=== PATIENT | male | born 1945 | race Caucasian/White ===

== ENCOUNTER 2019-04-26 10:21 | Emergency (ER) | payer MEDICARE, OTHER ==
[2019-04-26] MEDS ORDERED: ALBUTEROL/IPRATROPIUM 3 ML NEB NEB ONE (10:35)
[2019-04-26] MEDS ORDERED: methylPREDNIS SUCC 125 MG/2ML IVP ONE (10:35)
--- NOTE | 2019-04-26 10:37 | ER Report ---
History and Physical Time Seen By MD: 10:33 Hx. of Stated Complaint: PT REPORTS CP AND SOB SINCE LAST NIGHT. PT REPORTS HE JUST MOVED FROM [place] TO [place] HPI/ROS CHIEF COMPLAINT: Shortness of breath chest pain HISTORY OF PRESENT ILLNESS: 74-year-old male long history of COPD D multipack year smoker comes from level to altitude in here 2 days noticing worsening shortness of breath and had a brief episode of pleuritic chest discomfort this morning. Patient states he has ambulatory shortness of breath exertional shor tness of breath and mild orthopnea no PND. Patient describes chest pain is dull and aching center of his chest lasted a few moments and then subsequently resolved without intervention. Patient has not been on supplemental O2. Patient is still smoking. Is been without his medications including hypertensive medications and his breathing medications for the last [address] [facility] with very short notice was not able to bring any of his medications with him. Patient has no additional complaints this time REVIEW OF SYSTEMS: Respiratory: Cough no shortness of breath Cardiovascular: chest pain, no palpitations. Gastrointestinal: No vomiting, no abdominal pain. Musculoskeletal: No back pain. Remainder of the 14 system rev: Yes Allergies: Coded Allergies: Penicillins (Verified Allergy, Unknown, 04/26/19) Home Meds Unable to Obtain Active Prescriptions or Reported Meds Reviewed Nurses Notes: Yes Old Medical Records Reviewed: Yes Constitutional Vital Sign - Last 24 Hours 04/26/19 04/26/19 04/26/19 04/26/19 10:21 10:30 10:35 10:40 Temp 98.2 Pulse 88 88 88 91 Resp 16 21 15 13 B/P (MAP) 142/95 159/90 (113) Pulse Ox 92 91 90 89 O2 Delivery Room Air 04/26/19 04/26/19 04/26/19 04/26/19 10:45 10:50 10:55 10:55 Pulse 86 90 84 Resp 20 18 13 Pulse Ox 92 90 89 99 O2 Delivery Room Air 04/26/19 04/26/19 04/26/19 04/26/19 10:55 10:59 11:00 11:05 Pulse 84 81 86 Resp 18 18 16 16 B/P (MAP) 161/87 (111) Pulse Ox 88 86 04/26/19 04/26/19 04/26/19 04/26/19 11:10 11:10 11:15 11:20 Pulse 85 86 87 Resp 17 17 18 Pulse Ox 92 93 93 O2 Flow Rate 2.0 04/26/19 04/26/19 04/26/19 04/26/19 11:25 11:30 11:35 12:00 Pulse 87 90 85 87 Resp 15 11 17 16 B/P (MAP) 164/82 (109) 170/91 (117) Pulse Ox 94 90 94 95 04/26/19 04/26/19 12:15 12:27 Pulse 90 Resp 29 B/P (MAP) 157/79 (105) Pulse Ox 94 Physical Exam General Appearance: The patient is alert, has no immediate need for airway protection and no current signs of toxicity. [ ] Eyes: Pupils equal and round no injection. Respiratory: Chest is non tender, lungs demonstrate bilateral coarse crackles at the bases and end expiratory wheezes throughout no respiratory distress no sex accessory muscle utilization additional findings of note Cardiac: regular rate and rhythm [ ] Gastrointestinal: Abdomen is soft and non tender, no masses, bowel sounds normal. Musculoskeletal: Neck: Neck is supple and non tender. Extremities have full range of motion and are non tender. Skin: No rashes or lesions. [ ] DIFFERENTIAL DIAGNOSIS: After history and physical exam differential diagnosis was considered for COPD COPD exacerbation pneumonia or pulmonary embolus cardiac cardiomyopathy and congestive heart failure Medical Decision Making Data Points Result Diagram: 04/26/19 1030 04/26/19 1030 Laboratory Hematology Test 04/26/19 10:30 04/26/19 10:57 Red Blood Count 5.06 M/uL (4.00-5.60) Mean Corpuscular Volume 81.3 fL (80.0-96.0) Mean Corpuscular Hemoglobin 27.0 pg (26.0-33.0) Mean Corpuscular Hemoglobin Concent 33.2 g/dL (32.0-36.0) Red Cell Distribution Width 17.2 % (11.5-14.5) Mean Platelet Volume 8.9 fL (7.2-11.1) Neutrophils (%) (Auto) 53.4 % (39.4-72.5) Lymphocytes (%) (Auto) 32.1 % (17.6-49.6) Monocytes (%) (Auto) 9.0 % (4.1-12.4) Eosinophils (%) (Auto) 5.0 % (0.4-6.7) Basophils (%) (Auto) 0.5 % (0.3-1.4) Nucleated RBC Relative Count (auto) 0.0 /100WBC Neutrophils # (Auto) 5.3 K/uL (2.0-7.4) Lymphocytes # (Auto) 3.2 K/uL (1.3-3.6) Monocytes # (Auto) 0.9 K/uL (0.3-1.0) Eosinophils # (Auto) 0.5 K/uL (0.0-0.5) Basophils # (Auto) 0.1 K/uL (0.0-0.1) Nucleated RBC Absolute Count (auto) 0.00 K/uL D-Dimer Quantitative (PE/DVT) 2.06 ug/ml (0-0.50) Sodium Level 141 mmol/L (137-145) Potassium Level 3.8 mmol/L (3.5-5.0) Chloride Level 103 mmol/L (98-107) Carbon Dioxide Level 27 mmol/L (22-30) Blood Urea Nitrogen 15 mg/dl (9-21) Creatinine 1.00 mg/dl (0.66-1.25) Glomerular Filtration Rate Calc > 60.0 Random Glucose 125 mg/dl (75-110) Calcium Level 9.7 mg/dl (8.4-10.2) Total Bilirubin 0.6 mg/dl (0.2-1.3) Aspartate Amino Transf (AST/SGOT) 22 U/L (0-35) Alanine Aminotransferase (ALT/SGPT) 34 U/L (0-56) Alkaline Phosphatase 135 U/L (0-126) Troponin I < 0.012 ng/ml B-Type Natriuretic Peptide 36 pg/ml (0-100) Total Protein 7.9 g/dl (6.3-8.2) Albumin 4.2 g/dl (3.5-5.0) Blood Gas Puncture Site Left radial Blood Gas Patient Temperature 98.2 DEGREES Arterial Blood pH 7.47 (7.35-7.45) Arterial Blood Partial Pressure CO2 33 mmHg (32-37) Arterial Blood Partial Pressure O2 58 mmHg (60-80) Arterial Blood HCO3 24 mmol/L (20-26) Arterial Blood Oxygen Saturation 92 % (92-100) Arterial Blood Base Excess 0.0 mmol/L Trip Test Acceptable Oxygen Liters/Minute 21 Chemistry Test 04/26/19 10:30 04/26/19 10:57 White Blood Count 9.9 k/uL (4.5-11.0) Red Blood Count 5.06 M/uL (4.00-5.60) Hemoglobin 13.6 g/dL (14.0-18.0) Hematocrit 41.1 % (42.0-52.0) Mean Corpuscular Volume 81.3 fL (80.0-96.0) Mean Corpuscular Hemoglobin 27.0 pg (26.0-33.0) Mean Corpuscular Hemoglobin Concent 33.2 g/dL (32.0-36.0) Red Cell Distribution Width 17.2 % (11.5-14.5) Platelet Count 212 K/uL (150-450) Mean Platelet Volume 8.9 fL (7.2-11.1) Neutrophils (%) (Auto) 53.4 % (39.4-72.5) Lymphocytes (%) (Auto) 32.1 % (17.6-49.6) Monocytes (%) (Auto) 9.0 % (4.1-12.4) Eosinophils (%) (Auto) 5.0 % (0.4-6.7) Basophils (%) (Auto) 0.5 % (0.3-1.4) Nucleated RBC Relative Count (auto) 0.0 /100WBC Neutrophils # (Auto) 5.3 K/uL (2.0-7.4) Lymphocytes # (Auto) 3.2 K/uL (1.3-3.6) Monocytes # (Auto) 0.9 K/uL (0.3-1.0) Eosinophils # (Auto) 0.5 K/uL (0.0-0.5) Basophils # (Auto) 0.1 K/uL (0.0-0.1) Nucleated RBC Absolute Count (auto) 0.00 K/uL D-Dimer Quantitative (PE/DVT) 2.06 ug/ml (0-0.50) Glomerular Filtration Rate Calc > 60.0 Calcium Level 9.7 mg/dl (8.4-10.2) Total Bilirubin 0.6 mg/dl (0.2-1.3) Aspartate Amino Transf (AST/SGOT) 22 U/L (0-35) Alanine Aminotransferase (ALT/SGPT) 34 U/L (0-56) Alkaline Phosphatase 135 U/L (0-126) Troponin I < 0.012 ng/ml B-Type Natriuretic Peptide 36 pg/ml (0-100) Total Protein 7.9 g/dl (6.3-8.2) Albumin 4.2 g/dl (3.5-5.0) Blood Gas Puncture Site Left radial Blood Gas Patient Temperature 98.2 DEGREES Arterial Blood pH 7.47 (7.35-7.45) Arterial Blood Partial Pressure CO2 33 mmHg (32-37) Arterial Blood Partial Pressure O2 58 mmHg (60-80) Arterial Blood HCO3 24 mmol/L (20-26) Arterial Blood Oxygen Saturation 92 % (92-100) Arterial Blood Base Excess 0.0 mmol/L Trip Test Acceptable Oxygen Liters/Minute 21 Coagulation Test 04/26/19 10:30 D-Dimer Quantitative (PE/DVT) 2.06 ug/ml ED Course/Re-evaluation ED Course 74-year-old male [place] has had worsening shortness of breath last couple of days and chest discomfort CT angiogram is negative other than centrilobular emphysema patient will be advised to utilize ciprofloxacin D and discontinue smoking return to altitude levels if need be and follow-up with primary care Decision to Disposition Date: Apr 26, 2019 Decision to Disposition Time: 12:46 Depart Departure Latest Vital Signs Vital Signs Date Time Temp Pulse Resp B/P (MAP) Pulse Ox O2 Delivery O2 Flow Rate FiO2 04/26/19 12:27 157/79 (105) 04/26/19 12:15 90 29 94 04/26/19 11:10 2.0 04/26/19 10:55 Room Air 04/26/19 10:21 98.2 Impression: Primary Impression: COPD (chronic obstructive pulmonary disease) Condition: Improved Disposition: HOME OR SELF-CARE Referrals: МАРИНА JOHNSON 5 Days New Scripts Prednisone (PREDNISONE) 20 Mg Tablet 60 MG PO QDAY, #12 0 Refills Prov: SHAW SANCHEZ MD 04/26/19 Albuterol Sulfate (PROVENTIL HFA) 6.7 Gm Inh 1-2 PUFF INH 3-4XD for 10 Days, INH Prov: SHAW SANCHEZ MD 04/26/19 Patient Instructions: COPD (Chronic Obstructive Pulmonary Disease) (DC) SHAW SANCHEZ MD Apr 26, 2019 10:37
[2019-04-26 10:47] LABS: PLATELET COUNT, AUTOMATED 212 K/uL (150-450)
[2019-04-26] MEDS ORDERED: diphenhydrAMINE 50 MG/ML VIAL IVP ONE (11:25)
[2019-04-26] MEDS ORDERED: IOPAMIDOL 76% 100 ML INFUS BTL 100 ML ONE (11:26)
[2019-04-26] MEDS ORDERED: NS(*) 0.9% 50 ML BAG 50 ML ONE (11:27)
[2019-04-26 12:27] VITALS: BP 157/79
--- NOTE | 2019-04-26 12:46 | RADIOLOGY IMAGING REPORT ---
FACILITY: [facility] [place] PATIENT NAME: Neto Cisneros : 1945 MR: [id number] V: [id number] EXAM DATE: ORDERING PHYSICIAN: SHAW SANCHEZ TECHNOLOGIST: [place] [facility] [place]: [place]o Cisneros : 1945 Visit/Account:[id number] Date of Sevice: 04/26/2019 CT CTA CHEST W & W/O CON HISTORY: sob ADDITIONAL HISTORY: One pack a day cigarette smoker TECHNIQUE: CTA chest with intravenous contrast. Axial imaging acquired following administration of IV contrast timed for maximum opacification of the pulmonary arterial vasculature. Slab 3-D MIP radha nstructed images were also created for further evaluation and interpretation. Reconstruction of the [facility] data set includes multiplanar 2-D in the sagittal and coronal planes and 3-D reconstructed doris nal slab MIP series. 3-D images were created by the technologist. One of the following dose optimiz ation techniques was utilized in the performance of this exam: Automated exposure control; adjustment of the mA and/or kV according to the patient's size; or use of an iterative reconstruction techniqu e. Specific details can be referenced in the facility's radiology CT exam operational policy. CONTRAST: 75 mL Isovue-370 COMPARISON: None. FINDINGS: Lungs/pleura: Several tiny subcentimeter blebs are seen in the upper lung zones and there is very bashir btle bulla in the upper lung zones measuring less than 5 mm diameter. No pulmonary nodules are seen. Heart/vessels: Negative. There are no filling defects seen in the pulmonary arteries worrisome for a pulmonary embolus. Mediastinum/lymph nodes: There is a paratracheal lymph node upper normal limits in size measuring 1. 4 cm. No moose adenopathy. Visualized upper abdomen: 1 cm hepatic cyst noted. Otherwise unremarkable. Bones/soft tissues: Mild spondylitic changes seen through the thoracic spine. No compression fractu res. Additional findings: There is a hyperdense or enhancing right thyroid nodule measuring approximately 2.5 cm diameter (axial images 1-6 series 4). Minimal mucus is seen in the trachea and mainstem bronchi IMPRESSION: No acute pathology identified. No evidence of pulmonary embolus. Mild centrilobular emphysema. 2.5 cm hyperdense or enhancing right thyroid nodule. Recommend thyroid ultrasound follow-up for furt her evaluation. Report Dictated By: Vic Romo MD at 04/26/2019 12:27 PM Report E-Signed By: Vic Romo MD at 04/26/2019 12:40 PM WSN:[id number]
[2019-04-26] MEDS ORDERED: PRED20TA6 PO (12:50)
[2019-04-26] MEDS ORDERED: ALB6.7R INH (12:50)
== END 2019-04-26 13:00 | disposition home or self-care (01) ==
LOC: EDBD 10:21 → ER 10:37
DX: J44.9 Chronic obstructive pulmonary disease, unspecified (principal); F17.210 Nicotine dependence, cigarettes, uncomplicated
CPT/HCPCS: 36600; 71275; 82803; 83880; 84484; 85025; 85379; 93005; 94640; 96374; 96375; 99283; J1200; J2930; J7050; J7620; Q9967; 82040; 82247; 82310; 82374; 82435; 82565; 82947; 84075; 84132; 84155; 84295; 84450; 84460; 84520

== ENCOUNTER 2019-05-20 18:10 | Emergency (ER) | payer MEDICARE ==
[~2019-05-20 18:10] MED LIST: ALB6.7R INH; PRED20TA6 PO
--- NOTE | 2019-05-20 18:13 | ER Report ---
History and Physical Time Seen By MD: 18:10 HPI/ROS CHIEF COMPLAINT: Right lower quadrant abdominal pain, diarrhea HISTORY OF PRESENT ILLNESS: 74-year-old male with a history of COPD from [place] recently moved to [facility] a month ago. He presented on 04/26 with some difficulty breathing and a COPD exacerbation. He was given prednisone and albuterol inhaler. He has follow-up appoint scheduled with primary care in 06/09. Patient now presents with 4-5 days of right lower quadrant pain with severe diarrhea with mucus and some blood was noted today. Patient's been unable to eat or keep anything down for 2-3 days. He's vomited up a sandwich. She tried to eat earlier today. Low-grade fevers yesterday. He has a previous history of an ab dominal surgical repair and umbilical hernia. He states another hernia has recurred. He's not had any surgery done on it. Patient notes no exacerbating or alleviating factors for his pain. Patient denies recent travel exposure to ill contacts or consumption of bad food. Patient denies recent consumption of antibiotics. REVIEW OF SYSTEMS: Respiratory: No cough, no dyspnea. Cardiovascular: No chest pain, no palpitations. Gastrointestinal: As above Musculoskeletal: No back pain. Allergies: Coded Allergies: Penicillins (Verified Allergy, Unknown, 05/20/19) aspirin (Verified Adverse Reaction, Intermediate, stomach irritation, 05/20/19) Uncoded Allergies: IV contrast (Allergy, Mild, itchy, 05/20/19) Home Meds Active Scripts Metronidazole (FLAGYL) 500 Mg Tablet, 500 MG PO BID for infection, #14 TAB Prov:BENJI KEENAN DO 05/20/19 Ciprofloxacin Hcl 500 Mg Tab (CIPRO 500 MG TAB) 500 Mg Tablet, 500 MG PO BID for infecction, #14 Prov:BENJI KEENAN DO 05/20/19 Hydrocodone Bit/Acetaminophen (HYDROCODON-ACETAMINOPHEN 5-325) 1 Each Tablet, 1 EACH PO Q4-6H PRN for PAIN, #15 TAKE ONE TABLET BY MOUTH EVERY 4-6 HOURS NEEDED FOR PAIN Prov:BENJI KEENAN DO 05/20/19 Ondansetron 4 Mg Odt (ONDANSETRON 4 MG ODT) 4 Mg Tab.rapdis, 4 MG PO Q6H PRN for NAUSEA/VOMITING, #15 TAB Prov:BENJI KEENAN DO 05/20/19 Discontinued Scripts Prednisone (PREDNISONE) 20 Mg Tablet, 60 MG PO QDAY, #12 0 Refills Prov:SHAW SANCHEZ MD 04/26/19 Albuterol Sulfate (PROVENTIL HFA) 6.7 Gm Inh, 1-2 PUFF INH 3-4XD for 10 Days, INH Prov:SHAW SANCHEZ MD 04/26/19 Reviewed Nurses Notes: Yes Old Medical Records Reviewed: Yes Constitutional Vital Sign - Last 24 Hours 05/20/19 05/20/19 05/20/19 05/20/19 18:14 18:18 18:30 19:00 Temp 98.0 Pulse 99 Resp 18 B/P (MAP) 188/99 (128) 188/99 164/85 (111) 170/88 (115) Pulse Ox 94 O2 Delivery Room Air 05/20/19 05/20/19 05/20/19 05/20/19 19:10 19:30 19:40 20:00 Pulse 91 104 89 B/P (MAP) 153/87 (109) 159/78 (105) Pulse Ox 99 100 100 05/20/19 20:30 Pulse 85 B/P (MAP) 147/78 (101) Pulse Ox 99 Physical Exam Vital signs stable, afebrile, pulse ox normal General Appearance: The patient is alert, has no immediate need for airway protection and no current signs of toxicity. Moderate distress, slightly pale appearing, skin warm and dry HEENT: Pupils equal and round no injection. TMs normal, oropharynx with moist mucous. Membranes, no erythema Respiratory: Chest is non tender, lungs are clear to auscultation. Cardiac: regular rate and rhythm Gastrointestinal: Abdomen is soft moderate right lower quadrant tenderness with rebound and guarding, no masses, bowel sounds normal. Musculoskeletal: Neck: Neck is supple and non tender. No lymphadenopathy Extremities have full range of motion and are non tender. Skin: No rashes or lesions. DIFFERENTIAL DIAGNOSIS: After history and physical exam differential diagnosis was considered for abdominal pain including but not limited to appendicitis, cholecystitis, gastroenteritis, food poisoning, viral syndrome, infectious diarrhea, gastritis and urinary tract infection. Medical Decision Making Data Points Result Diagram: 05/20/19 1826 05/20/19 1826 Laboratory Hematology Test 05/20/19 18:26 White Blood Count 10.3 k/uL (4.5-11.0) Red Blood Count 4.80 M/uL (4.00-5.60) Hemoglobin 13.0 g/dL (14.0-18.0) L Hematocrit 38.2 % (42.0-52.0) L Mean Corpuscular Volume 79.5 fL (80.0-96.0) L Mean Corpuscular Hemoglobin 27.1 pg (26.0-33.0) Mean Corpuscular Hemoglobin Concent 34.1 g/dL (32.0-36.0) Red Cell Distribution Width 16.6 % (11.5-14.5) H Platelet Count 247 K/uL (150-450) Mean Platelet Volume 8.7 fL (7.2-11.1) Neutrophils (%) (Auto) 56.4 % (39.4-72.5) Lymphocytes (%) (Auto) 29.0 % (17.6-49.6) Monocytes (%) (Auto) 10.3 % (4.1-12.4) Eosinophils (%) (Auto) 3.5 % (0.4-6.7) Basophils (%) (Auto) 0.8 % (0.3-1.4) Nucleated RBC Relative Count (auto) 0.1 /100WBC Neutrophils # (Auto) 5.8 K/uL (2.0-7.4) Lymphocytes # (Auto) 3.0 K/uL (1.3-3.6) Monocytes # (Auto) 1.1 K/uL (0.3-1.0) H Eosinophils # (Auto) 0.4 K/uL (0.0-0.5) Basophils # (Auto) 0.1 K/uL (0.0-0.1) Nucleated RBC Absolute Count (auto) 0.01 K/uL Chemistry Test 05/20/19 18:26 Sodium Level 137 mmol/L (137-145) Potassium Level 3.5 mmol/L (3.5-5.0) Chloride Level 101 mmol/L (98-107) Carbon Dioxide Level 25 mmol/L (22-30) Blood Urea Nitrogen 11 mg/dl (9-21) Creatinine 0.80 mg/dl (0.66-1.25) Glomerular Filtration Rate Calc > 60.0 Random Glucose 113 mg/dl (75-110) Lactate 1.3 mmol/L (0.7-2.1) Calcium Level 9.6 mg/dl (8.4-10.2) Total Bilirubin 0.6 mg/dl (0.2-1.3) Aspartate Amino Transf (AST/SGOT) 27 U/L (0-35) Alanine Aminotransferase (ALT/SGPT) 29 U/L (0-56) Alkaline Phosphatase 142 U/L (0-126) Total Protein 7.7 g/dl (6.3-8.2) Albumin 3.9 g/dl (3.5-5.0) Amylase Level 49 U/L (0-110) Lipase 47 U/L (23-300) Urinalysis Test 05/20/19 19:45 Urine Color Straw Urine Clarity Slightly-cloudy Urine pH 7.0 pH (4.8-9.5) Urine Specific [place] 1.003 Urine Protein Negative mg/dL (NEGATIVE) Urine Glucose (UA) Negative mg/dL (NEGATIVE) Urine Ketones Negative mg/dL (NEGATIVE) Urine Blood Negative (NEGATIVE) Urine Nitrite Negative (NEGATIVE) Urine Bilirubin Negative (NEGATIVE) Urine Urobilinogen Negative mg/dL (0.2-1.9) Urine Leukocyte Esterase Negative (NEGATIVE) Urine RBC <1 /HPF (0-2/HPF) Urine WBC 1 /HPF (0-5/HPF) Urine Squamous Epithelial Cells None /LPF (</=FEW) Urine Amorphous Crystals Few /HPF Urine Bacteria Few /HPF (NONE-FEW) Urine Mucus None /HPF (NONE-FEW) Microbiology Microbiology Date/Time Source Procedure Growth Status 05/20/19 18:45 Blood Peripheral Draw Blood Culture - Preliminary NO GROWTH AFTER 1 DAY, REINCUBATED Resulted 05/20/19 18:25 Blood Peripheral Draw Blood Culture - Preliminary NO GROWTH AFTER 1 DAY, REINCUBATED Resulted EKG/Imaging Imaging Results: CT scan of the abdomen and pelvis with IV contrast was obtained. The results of the study are EXAMINATION: CT abdomen and pelvis with IV contrast HISTORY: Right lower quadrant pain. TECHNIQUE: Axial CT images of the abdomen and pelvis were obtained with IV contrast, with coronal and sagittal 2D reconstructed images. One of the following dose optimization techniques was utilized in the performance of this exam: Automated exposure control; adjustment of the mA and/or kV according to the patient's size; or use of an iterative reconstruction technique. Specific details can be referenced in the facility's radiology CT exam operational policy. Contrast: 75 mL of IV Isovue-370. COMPARISON: None. FINDINGS: Liver: Normal hepatic size and morphology. There is a 1.3 cm cyst in the inferior right hepatic lobe. Additional subcentimeter hypodensities in the liver are too small to definitively characterize. The hepatic veins and portal veins are patent. Gallbladder and bile ducts: Negative. Spleen: Negative. Pancreas: There are a few punctate calcifications along the pancreatic head likely related to prior pancreatitis. No acute peripancreatic stranding. Adrenal glands: Negative. Kidneys: No urinary calculi or hydronephrosis. The kidneys enhance normally. There is a 2.3 cm cortical cyst along the lower pole of the right kidney. Bowel and peritoneum: There is a large heterogeneously enhancing mass in the cecum, highly suspicious for colon cancer. This measures approximately 5.8 x 6.5 x 6.7 cm. There is some indistinctness along the serosal surface of the colon with some adjacent pericolonic stranding suspicious for transserosal extension of tumor. The mass extends to the ileocecal valve, without evidence of small bowel obstruction. The mass also extends to the appendiceal orifice. The appendix is mildly dilated measuring up to 9 mm in diameter with mild enhancement and slight periappendiceal stranding. Superimposed appendicitis is not excluded. Remainder of the small bowel and colon are normal in caliber. No additional bowel wall thickening. No free fluid or free intraperitoneal air. Pelvic structures: Negative. Lymph node assessment: There are multiple small rounded mesenteric lymph nodes adjacent to the cecal mass, measuring up to 1.3 x 1.0 cm, suspicious for metastatic adenopathy. No additional enlarged lymph nodes in the abdomen or pelvis. Vessels: Moderate aortic atherosclerosis. There is mild aneurysmal dilatation of the infrarenal abdominal aorta measuring 3.4 x 2.9 cm. Musculoskeletal: No acute osseous findings or suspicious focal osseous lesions. Chronic multilevel degenerative changes along the spine. Body wall: Negative. Lung bases: Indeterminate 5 mm noncalcified nodule in the left lower lobe (series 3, image 12). There is an adjacent subpleural nodule also measuring 5 mm (image 12). Slight scarring or atelectasis in the lung bases. IMPRESSION: 1. Heterogeneous soft tissue mass in the cecum is highly suspicious for colon cancer, measuring up to 6.7 cm. There is likely transserosal extension of tumor into the adjacent mesenteric fat with adjacent metastatic lymph nodes in the mesentery. 2. The mass involves the ileocecal valve, without evidence of small bowel obstruction. 3. The mass also involves the origin of the appendix. The appendix is mildly dilated at 9 mm with slight adjacent stranding. Appendicitis from obstruction of the appendiceal orifice is not excluded. 4. No other acute intra-abdominal findings. 5. There is a 1.3 cm cyst in the liver. Other subcentimeter hypodensities are too small to definitively characterize. Follow-up liver MRI may be helpful for further characterization. 6. Indeterminate 5 mm nodules in the imaged left lower lung. 7. Mild aneury mal dilatation of the infrarenal abdominal aorta measuring 3.4 x 2.9 cm. The study was read by the radiologist. I viewed the images myself on the PACS system. ED Course/Re-evaluation Clinical Indication for ER IV: Hydration, IV Access ED Course Patient was admitted to an examination room. H&P was done. The differential diagnoses was considered. Patient with acute right lower quadrant pain and diarrhea. He is quite uncomfortable. Diagnostic studies are performed. He is treated with IV fluids, Zofran and pain medication. He feels much better. His white blood cell counts normal at 10,[address] scan of the abdomen and pelvis shows a large cecal mass consistent with colon cancer. There is some enlargement of the appendix is questionable whether this is acute appendicitis. Case was discussed with general surgery. Dr. Dee will see him in the office this Wednesday.. He would like to cover him with antibiotics. She will also need follow-up with oncology clinic. Vision was discharged home on Lortab, Zofran, Flagyl and Cipro. He is advised to return to the ER for any worsening. 05/20/2019 9:25:16 pm case was discussed with Dr. Dee, general surgery on- call, who advises urgent follow-up in clinic this week Decision to Disposition Date: May 20, 2019 Decision to Disposition Time: 21:25 Depart Departure Latest Vital Signs Vital Signs Date Time Temp Pulse Resp B/P (MAP) Pulse Ox O2 Delivery O2 Flow Rate FiO2 05/20/19 20:30 85 147/78 (101) 99 05/20/19 18:18 98.0 18 Room Air Impression: Primary Impression: Mass of cecum Additional Impressions: Abdominal pain Diarrhea Condition: Improved Disposition: HOME OR SELF-CARE New Scripts Metronidazole (FLAGYL) 500 Mg Tablet 500 MG PO BID for infection, #14 TAB Prov: BENJI KEENAN DO 05/20/19 Ciprofloxacin Hcl 500 Mg Tab (CIPRO 500 MG TAB) 500 Mg Tablet 500 MG PO BID for infecction, #14 Prov: BENJI KEENAN DO 05/20/19 Hydrocodone Bit/Acetaminophen (HYDROCODON-ACETAMINOPHEN 5-325) 1 Each Tablet 1 EACH PO Q4-6H PRN for PAIN, #15 TAKE ONE TABLET BY MOUTH EVERY 4-6 HOURS NEEDED FOR PAIN Prov: BENJI KEENAN 05/20/19 Ondansetron 4 Mg Odt (ONDANSETRON 4 MG ODT) 4 Mg Tab.rapdis 4 MG PO Q6H PRN for NAUSEA/VOMITING, #15 TAB Prov: BENJI KEENAN 05/20/19 Patient Instructions: Abdominal Pain (ED), Acute Diarrhea (ED), Clear Liquid Diet (ED) Additional Instructions: Call oncology clinic Wednesday. [phone] Call Dr. Dee's office [phone] and make an appointment for Wednesday to be seen in his clinic for urgent follow-up Problem Qualifiers Additional Impressions: Abdominal pain Abdominal location: right lower quadrant Qualified Codes: R10.31 - Right lower quadrant pain Diarrhea Diarrhea type: unspecified type Qualified Codes: R19.7 - Diarrhea, unspecified BENJI KEENAN Angel WAGONER May 20, 2019 18:13
[2019-05-20] MEDS ORDERED: NS(*) 0.9% 1000 ML BAG 1,000 ML IV ONE (18:15)
[2019-05-20] MEDS ORDERED: fentaNYL CITR 100 MCG/2 ML AMP IVP ONE (18:25)
[2019-05-20] MEDS ORDERED: diphenhydrAMINE 50 MG/ML VIAL IVP ONE (18:25)
[2019-05-20] MEDS ORDERED: methylPREDNIS SUCC 125 MG/2ML IVP ONE (18:25)
[2019-05-20] MEDS ORDERED: ONDANSETRON 4 MG/2 ML VIAL IVP ONE (18:25)
[2019-05-20] MEDS ORDERED: IOPAMIDOL 76% 100 ML INFUS BTL 100 ML ONE (18:34)
[2019-05-20 18:39] LABS: PLATELET COUNT, AUTOMATED 247 K/uL (150-450)
[2019-05-20 20:30] VITALS: BP 147/78
--- NOTE | 2019-05-20 20:47 | RADIOLOGY IMAGING REPORT ---
FACILITY: [facility] PATIENT NAME: Neto Cisneros : 1945 MR: [id number] V: [id number] EXAM DATE: ORDERING PHYSICIAN: BENJI KEENAN TECHNOLOGIST: Location: [facility] Patient: Neto Cisneros : 1945 Visit/Account:[id number] Date of Sevice: 05/20/2019 EXAMINATION: CT abdomen and pelvis with IV contrast HISTORY: Right lower quadrant pain. TECHNIQUE: Axial CT images of the abdomen and pelvis were obtained with IV contrast, with coronal a nd sagittal 2D reconstructed images. One of the following dose optimization techniques was utilized in the performance of this exam: Autom ated exposure control; adjustment of the mA and/or kV according to the patient's size; or use of an i terative reconstruction technique. Specific details can be referenced in the facility's radiology C T exam operational policy. Contrast: 75 mL of IV Isovue-370. COMPARISON: None. FINDINGS: Liver: Normal hepatic size and morphology. There is a 1.3 cm cyst in the inferior right hepatic lobe . Additional subcentimeter hypodensities in the liver are too small to definitively characterize. The hepatic veins and portal veins are patent. Gallbladder and bile ducts: Negative. Spleen: Negative. Pancreas: There are a few punctate calcifications along the pancreatic head likely related to prior pancreatitis. No acute peripancreatic stranding. Adrenal glands: Negative. Kidneys: No urinary calculi or hydronephrosis. The kidneys enhance normally. There is a 2.3 cm corti winsome cyst along the lower pole of the right kidney. Bowel and peritoneum: There is a large heterogeneously enhancing mass in the cecum, highly suspiciou s for colon cancer. This measures approximately 5.8 x 6.5 x 6.7 cm. There is some indistinctness kristine g the serosal surface of the colon with some adjacent pericolonic stranding suspicious for transseros al extension of tumor. The mass extends to the ileocecal valve, without evidence of small bowel obstr uction. The mass also extends to the appendiceal orifice. The appendix is mildly dilated measuring up to 9 mm in diameter with mild enhancement and slight periappendiceal stranding. Superimposed appendi citis is not excluded. Remainder of the small bowel and colon are normal in caliber. No additional bowel wall thickening. No free fluid or free intraperitoneal air. Pelvic structures: Negative. Lymph node assessment: There are multiple small rounded mesenteric lymph nodes adjacent to the cecal mass, measuring up to 1.3 x 1.0 cm, suspicious for metastatic adenopathy. No additional enlarged lym ph nodes in the abdomen or pelvis. Vessels: Moderate aortic atherosclerosis. There is mild aneurysmal dilatation of the infrarenal abdo bakari aorta measuring 3.4 x 2.9 cm. Musculoskeletal: No acute osseous findings or suspicious focal osseous lesions. Chronic multilevel degenerative changes along the spine. Body wall: Negative. Lung bases: Indeterminate 5 mm noncalcified nodule in the left lower lobe (series 3, image 12). Ther e is an adjacent subpleural nodule also measuring 5 mm (image 12). Slight scarring or atelectasis in the lung bases. IMPRESSION: 1. Heterogeneous soft tissue mass in the cecum is highly suspicious for colon cancer, measuring up to 6.7 cm. There is likely transserosal extension of tumor into the adjacent mesenteric fat with adjace nt metastatic lymph nodes in the mesentery. 2. The mass involves the ileocecal valve, without evidence of small bowel obstruction. 3. The mass also involves the origin of the appendix. The appendix is mildly dilated at 9 mm with sli ght adjacent stranding. Appendicitis from obstruction of the appendiceal orifice is not excluded. 4. No other acute intra-abdominal findings. 5. There is a 1.3 cm cyst in the liver. Other subcentimeter hypodensities are too small to definitive ly characterize. Follow-up liver MRI may be helpful for further characterization. 6. Indeterminate 5 mm nodules in the imaged left lower lung. 7. Mild aneury mal dilatation of the infrarenal abdominal aorta measuring 3.4 x 2.9 cm. Findings were discussed with BENJI KEENAN at 05/20/2019 8:39 PM. Report Dictated By: Eric Delarosa MD at 05/20/2019 8:24 PMReport E-Signed By: Eric Delarosa MD at 04/25 8:41 PM WSN:[id number]
[2019-05-20] MEDS ORDERED: ACET/HYDROC 5/325MG TH ER ONLY 2 TAB/BOTTLE PO ONE (21:55)
[2019-05-20] MEDS ORDERED: ONDANSETRON 4 MG ODT TH SL ONE (21:55)
[2019-05-20] MEDS ORDERED: LOR5/325 PO (21:58)
[2019-05-20] MEDS ORDERED: ONDA4TAB9 PO (21:58)
[2019-05-20] MEDS ORDERED: METRONIDAZOLE 500 MG TABLET PO ONE (22:10)
[2019-05-20] MEDS ORDERED: CIPROFLOXACIN 500 MG TAB PO ONE (22:10)
[2019-05-20] MEDS ORDERED: CIPR-344 PO (22:11)
[2019-05-20] MEDS ORDERED: METR-1 PO (22:11)
== END 2019-05-20 22:04 | disposition home or self-care (01) ==
LOC: ER 18:15
DX: K63.89 Other specified diseases of intestine (principal); R10.31 Right lower quadrant pain; R19.7 Diarrhea, unspecified
CPT/HCPCS: 74177; 81001; 82150; 82378; 83605; 83690; 85025; 87040; 96361; 96374; 96375; 99284; A9270; J1200; J2405; J2930; J3010; J7030; Q0162; Q9967; 82040; 82247; 82310; 82374; 82435; 82565; 82947; 84075; 84132; 84155; 84295; 84450; 84460; 84520; S0119

== ENCOUNTER 2019-05-23 12:14 | Inpatient (IN) | payer MEDICARE, OTHER ==
[~2019-05-23 12:14] MED LIST changes: +CIPR-344 PO; +LOR5/325 PO; +METR-1 PO; +ONDA4TAB9 PO
--- NOTE | 2019-05-23 12:26 | ER Report ---
History and Physical Time Seen By MD: 12:22 Hx. of Stated Complaint: WAS HERE 3 DAYS AGO AND WE FOUND COLOC CA AND POSSIBLE APPENMDICITS ACCORDING TO PATIENT. STATES ABD PAIN CAME BACK THIS AM. HAS NOT FOLLOWED UP WITH ONCOLOGY OR DR. DEE YET. HAS NOT STARTED ANTIBIOTICS WE PRESCRIBED HPI/ROS CHIEF COMPLAINT: Right lower quadrant abdominal pain HISTORY OF PRESENT ILLNESS: 74-year-old male patient presents to emergency room with complaint of right lower quadrant abdominal pain. Patient states that he was seen here 3 days ago. At that time he was diagnosed with a mass in his colon as well as possible appendicitis. He states he was started on antibiotics. He is not been able to fill his prescription for his antibiotics and also has not been able to follow-up with oncology or with general surgeon. Patient states that the pain did improve, however today it seemed to get significantly worse. He states that the pain is better when he is lying down. He states is worse when he stands. He denies any fevers or chills. Patient states the pain seems to radiate to the right upper quadrant as well. REVIEW OF SYSTEMS: Respiratory: No cough, no dyspnea. Cardiovascular: No chest pain, no palpitations. Gastrointestinal: As noted above Musculoskeletal: No back pain. Allergies: Coded Allergies: Penicillins (Verified Allergy, Unknown, 05/23/19) aspirin (Verified Adverse Reaction, Intermediate, stomach irritation, 05/23/19) Uncoded Allergies: IV contrast (Allergy, Mild, itchy, 05/20/19) Home Meds Active Scripts Metronidazole (FLAGYL) 500 Mg Tablet, 500 MG PO BID for infection, #14 TAB Prov:BENJI KEENAN DO 05/20/19 Ciprofloxacin Hcl 500 Mg Tab (CIPRO 500 MG TAB) 500 Mg Tablet, 500 MG PO BID for infecction, #14 Prov:BENJI KEENAN DO 05/20/19 Hydrocodone Bit/Acetaminophen (HYDROCODON-ACETAMINOPHEN 5-325) 1 Each Tablet, 1 EACH PO Q4-6H PRN for PAIN, #15 TAKE ONE TABLET BY MOUTH EVERY 4-6 HOURS NEEDED FOR PAIN Prov:BENJI KEENAN DO 05/20/19 Ondansetron 4 Mg Odt (ONDANSETRON 4 MG ODT) 4 Mg Tab.rapdis, 4 MG PO Q6H PRN for NAUSEA/VOMITING, #15 TAB Prov:BENJI KEENAN DO 05/20/19 Discontinued Scripts Prednisone (PREDNISONE) 20 Mg Tablet, 60 MG PO QDAY, #12 0 Refills Prov:SHAW SANCHEZ MD 04/26/19 Albuterol Sulfate (PROVENTIL HFA) 6.7 Gm Inh, 1-2 PUFF INH 3-4XD for 10 Days, INH Prov:SHAW SANCHEZ MD 04/26/19 Past Medical/Surgical History Patient has a past medical history CVA, [place], hypertension, asthma, emphysema, COPD. Patient surgical history of a hernia repair. Reviewed Nurses Notes: Yes Constitutional Vital Sign - Last 24 Hours 05/23/19 05/23/19 05/23/19 05/23/19 12:20 12:30 13:00 13:30 Temp 97.8 Pulse 82 72 83 Resp 20 B/P (MAP) 169/92 154/117 (129) 186/89 (121) 186/89 (121) Pulse Ox 92 89 92 92 O2 Delivery Room Air 05/23/19 05/23/19 05/23/19 14:00 14:30 15:00 Pulse 79 80 79 B/P (MAP) 175/79 (111) 160/84 (109) Pulse Ox 92 92 93 Physical Exam General Appearance: The patient is alert, has no immediate need for airway protection and no current signs of toxicity. Respiratory: Chest is non tender, lungs are clear to auscultation. Cardiac: regular rate and rhythm Gastrointestinal: Abdomen is soft and tender in the right lower quadrant and right upper quadrant, no masses, bowel sounds normal. Musculoskeletal: Neck: Neck is supple and non tender. Extremities have full range of motion and are non tender. Skin: No rashes or lesions. DIFFERENTIAL DIAGNOSIS: After history and physical exam differential diagnosis was considered for abdominal pain including but not limited to appendicitis, cholecystitis, gastritis and urinary tract infection. Medical Decision Making Data Points Result Diagram: 05/23/19 1223 05/23/19 1223 Laboratory Hematology Test 05/23/19 12:23 White Blood Count 10.0 k/uL (4.5-11.0) Red Blood Count 4.71 M/uL (4.00-5.60) Hemoglobin 12.6 g/dL (14.0-18.0) L Hematocrit 37.5 % (42.0-52.0) L Mean Corpuscular Volume 79.6 fL (80.0-96.0) L Mean Corpuscular Hemoglobin 26.7 pg (26.0-33.0) Mean Corpuscular Hemoglobin Concent 33.5 g/dL (32.0-36.0) Red Cell Distribution Width 17.1 % (11.5-14.5) H Platelet Count 235 K/uL (150-450) Mean Platelet Volume 8.5 fL (7.2-11.1) Neutrophils (%) (Auto) 66.8 % (39.4-72.5) Lymphocytes (%) (Auto) 21.4 % (17.6-49.6) Monocytes (%) (Auto) 8.8 % (4.1-12.4) Eosinophils (%) (Auto) 2.2 % (0.4-6.7) Basophils (%) (Auto) 0.8 % (0.3-1.4) Nucleated RBC Relative Count (auto) 0.1 /100WBC Neutrophils # (Auto) 6.7 K/uL (2.0-7.4) Lymphocytes # (Auto) 2.2 K/uL (1.3-3.6) Monocytes # (Auto) 0.9 K/uL (0.3-1.0) Eosinophils # (Auto) 0.2 K/uL (0.0-0.5) Basophils # (Auto) 0.1 K/uL (0.0-0.1) Nucleated RBC Absolute Count (auto) 0.01 K/uL Peripheral Blood Smear No Y/N Chemistry Test 05/23/19 12:23 Sodium Level 136 mmol/L (137-145) Potassium Level 3.5 mmol/L (3.5-5.0) Chloride Level 103 mmol/L (98-107) Carbon Dioxide Level 26 mmol/L (22-30) Blood Urea Nitrogen 12 mg/dl (9-21) Creatinine 0.80 mg/dl (0.66-1.25) Glomerular Filtration Rate Calc > 60.0 Random Glucose 103 mg/dl (75-110) Calcium Level 9.0 mg/dl (8.4-10.2) Total Bilirubin 0.5 mg/dl (0.2-1.3) Aspartate Amino Transf (AST/SGOT) 19 U/L (0-35) Alanine Aminotransferase (ALT/SGPT) 20 U/L (0-56) Alkaline Phosphatase 111 U/L (0-126) C-Reactive Protein 4.4 mg/dl (<1.0) Total Protein 7.4 g/dl (6.3-8.2) Albumin 3.8 g/dl (3.5-5.0) Amylase Level 47 U/L (0-110) Lipase 47 U/L (23-300) Coagulation Test 05/23/19 12:23 Prothrombin Time 13.3 seconds (12.0-14.4) Prothromb Time International Ratio 1.01 Activated Partial Thromboplast Time 31 seconds (23-35) Urinalysis Test 05/23/19 12:14 Urine Color Yellow Urine Clarity Clear Urine pH 7.0 pH (4.8-9.5) Urine Specific [place] 1.011 Urine Protein Negative mg/dL (NEGATIVE) Urine Glucose (UA) Negative mg/dL (NEGATIVE) Urine Ketones Negative mg/dL (NEGATIVE) Urine Blood Negative (NEGATIVE) Urine Nitrite Negative (NEGATIVE) Urine Bilirubin Negative (NEGATIVE) Urine Urobilinogen Negative mg/dL (0.2-1.9) Urine Leukocyte Esterase Negative (NEGATIVE) Urine RBC <1 /HPF (0-2/HPF) Urine WBC <1 /HPF (0-5/HPF) Urine Squamous Epithelial Cells Few /LPF (</=FEW) Urine Bacteria Negative /HPF (NONE-FEW) Urine Mucus Few /HPF (NONE-FEW) EKG/Imaging Imaging EXAMINATION: CT abdomen and pelvis with contrast COMPARISON: 05/20/2019. HISTORY: Right lower quadrant abdominal pain. PROCEDURE: Multiplanar contrast enhanced CT of the abdomen and pelvis with 75 mL intravenous Isovue 370. One of the following dose optimization techniques was utilized in the performance of this exam: Automated exposure control; adjustment of the mA and/or kV according to the patient's size; or use of an iterative reconstruction technique. Specific details can be referenced in the facility's radiology CT exam operational policy. FINDINGS: Visualized thorax: Left lower lobe indeterminate 5 mm nodules are unchanged. Incompletely visualized consolidation versus volume loss in the right middle lobe. Liver: As on the comparison study there is a right hepatic lobe 1.4 cm cyst. Additional subcentimeter hypodensities are too small to completely characterize. Gallbladder and biliary system: Negative Spleen: Negative. Pancreas: Negative. Adrenal glands: Negative. Kidneys and bladder: Right kidney lower pole 2.3 cm cyst. Right kidney lower pole punctate nonobstructing stone. No renal mass or hydronephrosis. Urinary bladder is unremarkable. Vessels: Aortoiliac moderately advanced atherosclerosis with noncalcified plaque versus eccentric mural thrombus along the aorta. Irregular fusiform dilation of the infrarenal aorta measuring up to 3.0 cm (coronal images). Noncalcified atherosclerotic plaque likely results in at least 50% narrowing of the proximal right main renal artery. Bowel and mesentery: 6.5 cm the cecal soft tissue mass with infiltration of the surrounding soft tissues as well as numerous mildly enlarged pericolonic lymph nodes is redemonstrated. The mass likely extends into the proximal appendix; the mid appendix is dilated to 9 mm, unchanged, with mild periappendiceal stranding. Stomach is within normal limits. No small bowel obstruction. Small amount of stool elsewhere within the colon. No other evidence of inflammation. Pelvic organs: Negative. Lymph nodes: Right lower quadrant mesentery and pericolonic lymph nodes measuring up to 1.5 x 1.0 cm are highly suspicious for metastatic disease. Free air/free fluid: None. Musculoskeletal: No acute findings. No definite lytic or blastic osseous lesion. IMPRESSION: 1. Unchanged 6.5 cm cecal mass with findings concerning for a trans-serosal extension and local lymph node metastatic disease. 2. The mass involves both the ileocecal valve and the base of the appendix. Unchanged mildly dilated appendix measuring 9 mm with mild periappendiceal inflammation. Appendicitis due to obstruction of the appendiceal orifice by the mass cannot be excluded. 3. Left lower lobe indeterminate nodules are unchanged and require continued follow-up. 4. Unchanged hepatic hypodensities. As previously discussed, these would be more fully characterized by MRI with and without contrast. 5. Additional chronic/incidental findings as described in the body of the report. Results were discussed with BOYD HAIRSTON at 05/23/2019 1:50 PM. Report Dictated By: Abdias Gutierrez MD at 05/23/2019 1:39 PM Report E-Signed By: Abdias Gutierrez MD at 05/23/2019 1:51 PM ED Course/Re-evaluation ED Course Patient was admitted to exam room, history and physical were obtained. Differential diagnoses were considered. On examination lungs are clear, heart is regular, abdomen is soft and tender in the right lower quadrant. A CBC, CMP were done. A repeat CT scan of the abdomen and pelvis was done. Patient was here just 3 days ago had a [address] scan done at that time. At that point in time which was doing the CT scan here is for any changes in the appendix, especially worsening of disease the patient has. The CT scan did come back unremarkable. I discussed the findings with the patient. I discussed the case with Dr. Dee, surgeon, who agreed to accept the patient for admission. He states that he will bring him in and taken to surgery tomorrow. I discussed this with the patient who verbalized understanding and agreement with plan. Decision to Disposition Date: May 23, 2019 Decision to Disposition Time: 14:36 Depart Departure Latest Vital Signs Vital Signs Date Time Temp Pulse Resp B/P (MAP) Pulse Ox O2 Delivery O2 Flow Rate FiO2 05/23/19 15:00 79 93 05/23/19 14:30 160/84 (109) 05/23/19 12:20 97.8 20 Room Air Impression: Primary Impression: Abdominal pain Additional Impression: Mass of cecum Condition: Condition Unchanged Disposition: Admitted from ER Problem Qualifiers Primary Impression: Abdominal pain Abdominal location: right lower quadrant Qualified Codes: R10.31 - Right lower quadrant pain BOYD HAIRSTON May 23, 2019 12:26
[2019-05-23] MEDS ORDERED: NS(*) 0.9% 1000 ML BAG 1,000 ML IV ONE (12:29)
[2019-05-23] MEDS ORDERED: diphenhydrAMINE 50 MG/ML VIAL IVP ONE (12:35)
[2019-05-23 12:41] LABS: PLATELET COUNT, AUTOMATED 235 K/uL (150-450)
[2019-05-23 12:47] LABS: INR 1.01
[2019-05-23] MEDS ORDERED: IOPAMIDOL 76% 100 ML INFUS BTL 100 ML ONE (12:47)
--- NOTE | 2019-05-23 14:00 | RADIOLOGY IMAGING REPORT ---
FACILITY: [facility] [place] PATIENT NAME: Neto Cisneros : 1945 MR: [id number] V: [id number] EXAM DATE: ORDERING PHYSICIAN: BOYD HAIRSTON TECHNOLOGIST: Location: Patient: Neto Cisneros : 1945 Visit/Account:[id number] Date of Sevice: 05/23/2019 EXAMINATION: CT abdomen and pelvis with contrast COMPARISON: 05/20/2019. HISTORY: Right lower quadrant abdominal pain. PROCEDURE: Multiplanar contrast enhanced CT of the abdomen and pelvis with 75 mL intravenous Isovue 3 70. One of the following dose optimization techniques was utilized in the performance of this exam: A utomated exposure control; adjustment of the mA and/or kV according to the patient's size; or use of an iterative reconstruction technique. Specific details can be referenced in the facility's radiolo gy CT exam operational policy. FINDINGS: Visualized thorax: Left lower lobe indeterminate 5 mm nodules are unchanged. Incompletely visualized consolidation versus volume loss in the right middle lobe. Liver: As on the comparison study there is a right hepatic lobe 1.4 cm cyst. Additional subcentimeter hypodensities are too small to completely characterize. Gallbladder and biliary system: Negative Spleen: Negative. Pancreas: Negative. Adrenal glands: Negative. Kidneys and bladder: Right kidney lower pole 2.3 cm cyst. Right kidney lower pole punctate nonobstruc ting stone. No renal mass or hydronephrosis. Urinary bladder is unremarkable. Vessels: Aortoiliac moderately advanced atherosclerosis with noncalcified plaque versus eccentric mur al thrombus along the aorta. Irregular fusiform dilation of the infrarenal aorta measuring up to 3.0 cm (coronal images). Noncalcified atherosclerotic plaque likely results in at least 50% narrowing of the proximal right main renal artery. Bowel and mesentery: 6.5 cm the cecal soft tissue mass with infiltration of the surrounding soft tiss ues as well as numerous mildly enlarged pericolonic lymph nodes is redemonstrated. The mass likely ex tends into the proximal appendix; the mid appendix is dilated to 9 mm, unchanged, with mild periappen diceal stranding. Stomach is within normal limits. No small bowel obstruction. Small amount of stool elsewhere within the colon. No other evidence of inflammation. Pelvic organs: Negative. Lymph nodes: Right lower quadrant mesentery and pericolonic lymph nodes measuring up to 1.5 x 1.0 cm are highly suspicious for metastatic disease. Free air/free fluid: None. Musculoskeletal: No acute findings. No definite lytic or blastic osseous lesion. IMPRESSION: 1. Unchanged 6.5 cm cecal mass with findings concerning for a trans-serosal extension and local lymph node metastatic disease. 2. The mass involves both the ileocecal valve and the base of the appendix. Unchanged mildly dilated appendix measuring 9 mm with mild periappendiceal inflammation. Appendicitis due to obstruction of th e appendiceal orifice by the mass cannot be excluded. 3. Left lower lobe indeterminate nodules are unchanged and require continued follow-up. 4. Unchanged hepatic hypodensities. As previously discussed, these would be more fully characterized by MRI with and without contrast. 5. Additional chronic/incidental findings as described in the body of the report. Results were discussed with BOYD HAIRSTON at 05/23/2019 1:50 PM. Report Dictated By: Abdias Gutierrez MD at 05/23/2019 1:39 PM Report E-Signed By: Abdias Gutierrez MD at 05/23/2019 1:51 PM WSN:[id number]
[2019-05-23] MEDS ORDERED: metroNIDAZOLE* 500MG/100ML BAG 100 ML IVPB ONE (14:30)
[2019-05-23] MEDS ORDERED: LEVOFLOXACIN/D5W*500 MG/100 ML 100 ML IVPB ONE (14:30)
[2019-05-23] MEDS ORDERED: MORPHINE 4 MG/ML SDV IVP ONE (14:40)
[2019-05-23 15:44] VITALS: BP 173/101
[2019-05-23] MEDS ORDERED: NS(*) 0.9% 500 ML BAG 500 ML IV PRN (16:30)
[2019-05-23] MEDS ORDERED: ONDANSETRON 4 MG/2 ML VIAL IVP PRN (16:50)
[2019-05-23] MEDS ORDERED: HYDROmorphone HCL 2 MG/ML SDV IVP PRN (16:50)
--- NOTE | 2019-05-23 16:56 | Gen Surgery History & Physical ---
History of Present Illness Chief Complaint rlq pain History of Present Illness 74 yo m with rlq pain. he presented to the er a few days ago with rlq. he as scheduled for clinic visit tomorrow but his pain began again this am and he presented to er. no vomiting. nicol po. had bm yesterday but it was black. has had wt loss and night sweats. uop fine. colonoscopy 4 yrs ago found unresectable polyps. "cyst" on right neck that gets bigger, drains, gets smaller, then this cycle repeats. med/surg hx: umb hernia repair, kidney stones, colon polyps fam hx: gpa had colon ca social hx: +cigs History Home Meds Active Scripts Metronidazole (FLAGYL) 500 Mg Tablet, 500 MG PO BID for infection, #14 TAB Prov:BENJI KEENAN DO 05/20/19 Ciprofloxacin Hcl 500 Mg Tab (CIPRO 500 MG TAB) 500 Mg Tablet, 500 MG PO BID for infecction, #14 Prov:BENJI KEENAN DO 05/20/19 Hydrocodone Bit/Acetaminophen (HYDROCODON-ACETAMINOPHEN 5-325) 1 Each Tablet, 1 EACH PO Q4-6H PRN for PAIN, #15 TAKE ONE TABLET BY MOUTH EVERY 4-6 HOURS NEEDED FOR PAIN Prov:BENJI KEENAN DO 05/20/19 Ondansetron 4 Mg Odt (ONDANSETRON 4 MG ODT) 4 Mg Tab.rapdis, 4 MG PO Q6H PRN for NAUSEA/VOMITING, #15 TAB Prov:BENJI KEENAN DO 05/20/19 Discontinued Scripts Prednisone (PREDNISONE) 20 Mg Tablet, 60 MG PO QDAY, #12 0 Refills Prov:SHAW SANCHEZ MD 04/26/19 Albuterol Sulfate (PROVENTIL HFA) 6.7 Gm Inh, 1-2 PUFF INH 3-4XD for 10 Days, INH Prov:SHAW SANCHEZ MD 04/26/19 Allergies: Coded Allergies: Penicillins (Verified Allergy, Unknown, 05/23/19) aspirin (Verified Adverse Reaction, Intermediate, stomach irritation, 05/23/19) Uncoded Allergies: IV contrast (Allergy, Mild, itchy, 05/20/19) Review of Systems Constitutional: Other (10 pt ros neg except per hpi) Exam General Appearance: Alert, Awake, No Acute Distress Neuro: No Gross deficits Eyes: Other (per, eomi) ENT: Moist Mucous Membranes Neck: Other (tender 2.5 cm lump right neck) Cardiovascular: Other (reg rate) Respiratory: No Respiratory Distress GI: Other (abd soft, rlq ttp) Extremities: Other (no pitting edema) Integumentary: Skin Intact without Lesion / Mass Psych: Alert & Oriented X3, Appropriate Mood & Affect Medical Decision Making Data Points Result Diagram: 05/23/19 1223 05/23/19 1223 Assessment and Plan Problems: (1) Mass of cecum Status: Acute Assessment & Plan: 05/23/19: right pain and cecal mass. bowel prep tonight, colonoscopy tomorrow, pain control Venous Thromboembolism Antithrombotics Is Pt On Any Antithrombotics?: No DENISE PENA May 23, 2019 16:56
[2019-05-23] MEDS ORDERED: BISACODYL 5 MG TABEC PO ONE (17:00)
[2019-05-23] MEDS: metroNIDAZOLE* 500MG/100ML BAG 100 ML IVPB SCH (17:13)
[2019-05-23] MEDS ORDERED: POLYETHYLENE GLYCOL 17 GM PKT PO ONE (19:00)
[2019-05-23 19:36] VITALS: BP 164/79
[2019-05-23] MEDS: NS(*) 0.9% 1000 ML BAG 1,000 ML IV SCH (23:18)
[2019-05-24] VITALS (9 sets, daily range): BP systolic 114–143; BP diastolic 56–112
[2019-05-24] MEDS: metroNIDAZOLE* 500MG/100ML BAG 100 ML IVPB SCH ×2 (01:37→08:49)
[2019-05-24] MEDS ORDERED: PROPOFOL EMUL(*) 10MG/ML 20 ML 20 ML ONE (07:34)
[2019-05-24] MEDS: NS(*) 0.9% 1000 ML BAG 1,000 ML IV SCH (08:25)
[2019-05-24] MEDS ORDERED: NORMOSOL R SOLN(*) 1000 ML BAG 1,000 ML IV ONE (10:10)
--- NOTE | 2019-05-24 12:58 | General Surgery Progress Note ---
Subjective Progress Notes Subjective pain improved today. prep went fine. mass found during colonoscopy. Physical Exam Vital Signs Date Time Temp Pulse Resp B/P (MAP) Pulse Ox O2 Delivery O2 Flow Rate FiO2 05/24/19 12:45 71 16 96 05/24/19 10:29 98.5 143/76 (98) Nasal Cannula 1.0 Intake and Output 05/24/19 07:03 Intake Total 4247 ml Balance 4247 ml Intake Oral 3130 ml IV Total 1117 ml # Bowel Movements 1 General Appearance: No Acute Distress Cardiovascular: Other (reg rate) GI: Other (abd soft) Result Diagram: 05/23/19 1223 05/23/19 1223 Assessment and Plan Problems: (1) Mass of cecum Status: Acute Assessment & Plan: 05/23/19: right pain and cecal mass. bowel prep tonight, colonoscopy tomorrow, pain control 05/24/19: mass on colonoscopy. will discuss with onc. jaquan. Exam Sepsis Risk: No Definite Risk DENISE PENA May 24, 2019 12:58
[2019-05-24] MEDS ORDERED: LEVOFLOXACIN/D5W*500 MG/100 ML 100 ML IVPB SCH (15:00)
[2019-05-24] MEDS ORDERED: METR-1 PO (16:19)
[2019-05-24] MEDS ORDERED: CIPR-344 PO (16:20)
[2019-05-24] MEDS ORDERED: HYDR-653 PO (16:21)
--- NOTE | 2019-05-24 16:23 | Short(Outpt) Discharge Summary ---
Discharge Summary Reason for Hosp/Final Diag: (1) Mass of cecum Status: Acute Hospital Course & Plan: 05/23/19: right pain and cecal mass. bowel prep tonight, colonoscopy tomorrow, pain control 05/24/19: mass on colonoscopy. will discuss with onc. adat. discussed with onc then pt. will proceed with colon resection in 6 days. pt feels comfortable going home. path pending. home with abx and pain meds. Departure Discharge to: Home Discharge Instructions Home Meds Active Scripts Hydrocodone Bit/Acetaminophen (NORCO 5-325 TABLET) 1 Each Tablet, 1 EACH PO Q4H PRN for PAIN, #20 TAB Prov:DENISE PENA P 05/24/19 Ciprofloxacin Hcl 500 Mg Tab (CIPRO 500 MG TAB) 500 Mg Tablet, 500 MG PO BID, #12 TAB Prov:DENISE PENA 05/24/19 Metronidazole (FLAGYL) 500 Mg Tablet, 500 MG PO Q8H, #18 TAB Prov:DENISE PENA 05/24/19 Metronidazole (FLAGYL) 500 Mg Tablet, 500 MG PO BID for infection, #14 TAB Prov:BENJI KEENAN DO 05/20/19 Ciprofloxacin Hcl 500 Mg Tab (CIPRO 500 MG TAB) 500 Mg Tablet, 500 MG PO BID for infecction, #14 Prov:BENJI KEENAN DO 05/20/19 Hydrocodone Bit/Acetaminophen (HYDROCODON-ACETAMINOPHEN 5-325) 1 Each Tablet, 1 EACH PO Q4-6H PRN for PAIN, #15 TAKE ONE TABLET BY MOUTH EVERY 4-6 HOURS NEEDED FOR PAIN Prov:BENJI KEENAN 05/20/19 Ondansetron 4 Mg Odt (ONDANSETRON 4 MG ODT) 4 Mg Tab.rapdis, 4 MG PO Q6H PRN for NAUSEA/VOMITING, #15 TAB Prov:BENJI KEENAN DO 05/20/19 Discontinued Scripts Prednisone (PREDNISONE) 20 Mg Tablet, 60 MG PO QDAY, #12 0 Refills Prov:SHAW SANCHEZ MD 04/26/19 Albuterol Sulfate (PROVENTIL HFA) 6.7 Gm Inh, 1-2 PUFF INH 3-4XD for 10 Days, INH Prov:SHAW SANCHEZ MD 04/26/19 Diet: Regular Activity: As Tolerated Special Instructions: take colon prep as instructed. surgery 05/30/19. DENISE PENA May 24, 2019 16:23
== END 2019-05-24 17:20 | disposition home or self-care (01) | DRG 376 ==
LOC: ER 12:31 → MED 15:06
PROVIDERS: ADMIT Surgery; ATTEND Surgery
PROC: 0DBM8ZX Excision of Descending Colon, Via Natural or Artificial Opening Endoscopic, Diagnostic (ICD-10-PCS; 2019-05-24)
PROC: 0DBM8ZX Excision of Descending Colon, Via Natural or Artificial Opening Endoscopic, Diagnostic (ICD-10-PCS; principal; 2019-05-24 11:34)
DX: C18.4 Malignant neoplasm of transverse colon (principal); D12.4 Benign neoplasm of descending colon; I10 Essential (primary) hypertension; I25.10 Atherosclerotic heart disease of native coronary artery without angina pectoris; I25.2 Old myocardial infarction; J45.909 Unspecified asthma, uncomplicated; J43.9 Emphysema, unspecified; Z87.891 Personal history of nicotine dependence; Z88.0 Allergy status to penicillin; Z88.8 Allergy status to other drugs, medicaments and biological substances; Z86.73 Personal history of transient ischemic attack (TIA), and cerebral infarction without residual deficits
CPT/HCPCS: 74177; 81001; 82040; 82150; 82247; 82310; 82374; 82435; 82565; 82947; 83690; 84075; 84132; 84155; 84295; 84450; 84460; 84520; 85025; 85610; 85730; 86140; 88305; 96361; 96374; 96375; 99285; J1200; J1956; J2270; J2405; J2704; J3490; J7030; J7040; Q9967

== ENCOUNTER 2019-05-29 12:20 | Inpatient (IN) | payer MEDICARE ==
[~2019-05-29] VITALS: Ht 178.8 cm; Wt 70.8 kg
[~2019-05-29 12:20] MED LIST changes: +HYDR-653 PO
[2019-05-29 12:55] VITALS: BP 150/84
[2019-05-29] MEDS ORDERED: BISACODYL 5 MG TABEC PO ONE (13:00)
[2019-05-29] MEDS ORDERED: POLYETHYLENE GLYCOL 17 GM PKT PO ONE (15:00)
[2019-05-29] MEDS: NS(*) 0.9% 1000 ML BAG 1,000 ML IV PRN (15:54)
[2019-05-29 18:52] VITALS: BP 183/78
[2019-05-29 23:30] VITALS: BP 168/85
[2019-05-30] VITALS (13 sets, daily range): BP systolic 103–150; BP diastolic 59–89
--- NOTE | 2019-05-30 08:28 | EKG ---
FACILITY: [facility] [place] PATIENT NAME: NIC MCGHEE : [id number] MR: [id number] V: [id number] EXAM DATE: ORDERING PHYSICIAN: DENISE PENA TECHNOLOGIST: PHAM Test Reason : PRE OP Blood Pressure : / mmHG Vent. Rate : 074 BPM Atrial Rate : 074 BPM P-R Int : 138 ms QRS Dur : 072 ms QT Int : 384 ms P-R-T Axes : 039 050 037 degrees QTc Int : 426 ms Normal sinus rhythm Normal ECG No previous ECGs available Confirmed by DARNELL CASE ([id number]) on 05/30/2019 2:15:09 PM Referred By: JEAN Confirmed By:DARNELL CASE
--- NOTE | 2019-05-30 08:42 | Gen Surgery History & Physical ---
History of Present Illness Chief Complaint colon cancer History of Present Illness 74 yo m with colon cancer evaluated with ct, colonoscopy and bx. had rlq pain in the past but this has improved. positive bms. pt presents for resection of colon cancer. History Home Meds Active Scripts Ciprofloxacin Hcl 500 Mg Tab (CIPRO 500 MG TAB) 500 Mg Tablet, 500 MG PO BID, #12 TAB Prov:DENISE PENA 05/24/19 Metronidazole (FLAGYL) 500 Mg Tablet, 500 MG PO Q8H, #18 TAB Prov:DENISE PENA 05/24/19 Hydrocodone Bit/Acetaminophen (HYDROCODON-ACETAMINOPHEN 5-325) 1 Each Tablet, 1 EACH PO Q4-6H PRN for PAIN, #15 TAKE ONE TABLET BY MOUTH EVERY 4-6 HOURS NEEDED FOR PAIN Prov:BENJI KEENAN DO 05/20/19 Discontinued Scripts Hydrocodone Bit/Acetaminophen (NORCO 5-325 TABLET) 1 Each Tablet, 1 EACH PO Q4H PRN for PAIN, #20 TAB Prov:DENISE PENA 05/24/19 Metronidazole (FLAGYL) 500 Mg Tablet, 500 MG PO BID for infection, #14 TAB Prov:BENJI KEENAN DO 05/20/19 Ciprofloxacin Hcl 500 Mg Tab (CIPRO 500 MG TAB) 500 Mg Tablet, 500 MG PO BID for infecction, #14 Prov:BENJI KEENAN DO 05/20/19 Ondansetron 4 Mg Odt (ONDANSETRON 4 MG ODT) 4 Mg Tab.rapdis, 4 MG PO Q6H PRN for NAUSEA/VOMITING, #15 TAB Prov:BENJI KEENAN DO 05/20/19 Allergies: Coded Allergies: Penicillins (Verified Allergy, Unknown, 05/23/19) aspirin (Verified Adverse Reaction, Intermediate, stomach irritation, 05/23/19) Uncoded Allergies: IV contrast (Allergy, Mild, itchy, 05/20/19) Patient History: FH: Parkinson's disease MOTHER Review of Systems Constitutional: Other (per hpi) Exam General Appearance: Alert, Awake, No Acute Distress, Afebrile Neuro: No Gross deficits Eyes: Other (per, eomi) ENT: Moist Mucous Membranes Cardiovascular: Other (reg rate) GI: Other (abd soft) Integumentary: Skin Intact without Lesion / Mass Psych: Appropriate Mood & Affect Assessment and Plan Problems: (1) Colon cancer Assessment & Plan: colon prep, then colon resection this plan was discussed with onc. Venous Thromboembolism Antithrombotics Is Pt On Any Antithrombotics?: No DENISE PENA May 30, 2019 08:41
[2019-05-30] MEDS ORDERED: NORMOSOL R SOLN(*) 1000 ML BAG 1,000 ML IV ONE (09:54)
[2019-05-30] MEDS ORDERED: FAMOTIDINE 20 MG TAB ONE (10:33)
[2019-05-30] MEDS ORDERED: LIDOCAINE 2% IV 100 MG/5ML SYR ONE (11:09)
[2019-05-30] MEDS ORDERED: fentaNYL CITR 250 MCG/5 ML AMP ONE ×2 (11:14→13:50)
[2019-05-30] MEDS ORDERED: PROPOFOL EMUL(*) 10MG/ML 20 ML 20 ML ONE (11:16)
[2019-05-30] MEDS ORDERED: ROCURONIUM BR 10 MG/ML 5 ML SY 5 ML ONE ×2 (11:17→14:32)
[2019-05-30] MEDS ORDERED: metroNIDAZOLE* 500MG/100ML BAG 100 ML IVPB ONE ×2 (11:40→12:40)
[2019-05-30] MEDS ORDERED: LEVOFLOXACIN/D5W 750 MG/150 ML 150 ML IVPB ONE ×2 (11:40→12:40)
[2019-05-30] MEDS ORDERED: LIDOCAINE/SOD BICARB 8.4% SYR ID ONE (11:45)
[2019-05-30] MEDS ORDERED: BUPIVACAINE/EPI 0.5% 50ML VIAL INFIL ONE (12:56)
[2019-05-30] MEDS ORDERED: DEXAMETHASONE SOD 4 MG/ML VIAL ONE (13:12)
[2019-05-30] MEDS ORDERED: KETAMINE HCL 200 MG/20 ML MDV ONE ×2 (13:16→14:31)
[2019-05-30] MEDS ORDERED: ONDANSETRON 4 MG/2 ML VIAL ONE (13:22)
[2019-05-30] MEDS ORDERED: SUGAMMADEX SOD 200 MG/2 ML SDV ONE (14:40)
--- NOTE | 2019-05-30 15:02 | Medical Nutrition Therapy ---
Nutrition Anthropometrics Height (Inches): 70.40 Height (Calculated Centimeters: 178.675295 Weight (Pounds): 156 Weight (Calculated Kilograms): 70.760 BMI: 22.1 Reginald Nutrition Score: Adequate Reginald Nutrition Risk Score: 21 Dietary Referral Nutrition Risk Factors: Unplanned Loss >10lbs Nutrition Risk Comment: Physical Findings Physical Appearance: WNR Skin Appearance Skin Appearance: Edema Edema Location Modifier: Edema Location: Type of Edema: Degree of Edema: Gastrointestinal Symptoms GI Symtoms: Diarrhea Tube Present: Bowel Sounds: Recent Bowel Pattern: Stool Characteristics: Nutritional Diagnosis Nutritional Risk Acuity 2: Head/Neck/GI Cancer Past Medical History: CVA, HTN, [place], Arthritis, COPD Nutritional Acuity: 2-Moderate Nutrition Diagnosis: Altered GI Function Nutrition Etiology: Physiological Causes Nutrition Problem/Etiology/Sym: Colon Cancer, colon resection Energy Requirement: 2199 (MSJ(1.5)) Protein Requirement: 85 (1.2g/kg) Fluid Requirement: 2199 (1mL/kcal) Nutrition Intervention: Encourage intake Nutrition Monitoring & Eval Nutrition Goals: Eat 75-100% Meal Nutrition Monitoring: Intake, Tolerance to po intake RD Patient Assessment Time: [address] Assessment Type: RD Assessment Patient Nutrition Acuity: 2-Moderate Follow Up Date: Jun 02, 2019 Nutritional Comment: 05/30/19: Attempted to visit pt, currently in surgery for colon resection. PMH includes CVA, HTN, [place], Arthritis, COPD. Recommend low fiber/low residue diet post op.Will monitor weight, diet progression, need for nutrition education following colon resection.PARESH ESPINOZA May 30, 2019 15:02
[2019-05-30] MEDS ORDERED: fentaNYL CITR 100 MCG/2 ML AMP ONE (15:58)
--- NOTE | 2019-05-30 16:21 | Post Operative Progress Note ---
Post Operative Progress Note Date: May 30, 2019 Time: 16:07 Surgeon: dr. tashia fernandez #[id number] Metal Miner: none Anesthesia: gen, local dr. chandler Pre-Op Diagnosis: colon cancer Post-Op Diagnosis: same Findings: cecal mass Procedure(s): dx lap open right hemicolectomy partial omentectomy Specimen Removed:(May be N/A): right colon Complications: none Estimated Blood Loss: 300 ml Date OP Note Dictated: May 30, 2019 Time OP Note Dictated: 16:09 DENISE FERNANDEZ May 30, 2019 16:21
[2019-05-30] MEDS: KETOROLAC 30 MG/ML VIAL IVP SCH ×2 (17:39→23:39)
[2019-05-30] MEDS: GABAPENTIN 300 MG CAP PO SCH ×2 (20:43→21:00)
[2019-05-30] MEDS: ONDANSETRON 4 MG/2 ML VIAL IVP PRN (22:06)
--- NOTE | 2019-05-30 22:40 | OPERATIVE REPORT 1 ---
EVENT DATE: May 30, 2019 SURGEON: Gee Dee MD ANESTHESIOLOGIST: Jung Chance MD ANESTHESIA: General and local. STEAM BOX HAND: None. PREOPERATIVE DIAGNOSIS Colon cancer. POSTOPERATIVE DIAGNOSIS Colon cancer. PROCEDURES PERFORMED 1. Diagnostic laparoscopy. 2. Open right hemicolectomy. 3. Partial omentectomy. FLUIDS IV crystalloid. ESTIMATED BLOOD LOSS 300 mL. SPECIMENS Right colon. COMPLICATIONS None. INDICATIONS This is a 74-year-old male with biopsy-proven colon cancer. The lesion was tattooed, but I was unable to transverse the lesion; therefore, I could not be certain that the lesion was the same one seen on the CT scan in the cecum. PHYSICAL EXAMINATION Patient's abdomen was soft. She was stable. CONSENT Risks and benefits of the procedure were explained, and consent was signed. DESCRIPTION OF PROCEDURE Patient was taken to the operating room and placed in the supine position. General anesthesia was administered per anesthesia team. Patient was prepped and draped in the normal sterile fashion. Local analgesia was injected in the dermis above the umbilicus, and a small incision was made. The umbilical stump was grasped and elevated. A Veress needle was inserted. A pneumoperitoneum was achieved. The Veress needle was removed. A 5 mm port was advanced. After injecting local analgesia and under direct vision, two 5 mm left-sided ports were placed. I inspected the abdomen. There was no injury upon entry. Diagnostic laparoscopy was performed. I was unable to see the tattooed area. There was a mass and adhesions on the right. This included the right colon as well as some small bowel adhered to the mass. The mass was also adhered to the abdominal wall on the right. At this point, I elected to open. A midline incision was made. Electrocautery was used to carry the incision down through the subcutaneous tissue. The fascia was carefully opened, as was the peritoneum, and these were extended to match the length of the skin incision. Bookwalter retractor was placed. I divided with cautery along the white line of Toldt. There was an area of peritoneum was adhered, and I took this with the specimen. I continued to mobilize the right colon medially. The hepatic flexure was taken down bluntly with electrocautery and with LigaSure. Care was taken to protect the duodenum. A portion of the omentum was taken with the specimen. The ileocolic artery was isolated. It was clamped. It was divided with the LigaSure and ligated with a silk tie. LigaSure was used to divide the mesentery. The small bowel that was adhered to the mass was terminal ileum, and therefore, I made a window in the mesentery of the terminal ileum proximal to this, and a RYANN blue load was fired across the terminal ileum at this point. Another RYANN blue load was fired across the transverse colon. The remainder of the mesentery was divided with LigaSure, and the specimen was removed. There was some bleeding in the mesentery of the transverse colon, and this was controlled with silk stitches and clips. I palpated the contents of the abdomen, and this was within normal limits, including the small bowel was run. The mesentery was palpated. The mesentery was within normal limits, as was the liver. The terminal ileum and transverse colon were aligned side by side with silk stitches. Enterotomy and colotomy were made, and a blue load was fired. The common otomy was closed with running PDS stitches and then 3-0 silk Lembert stitches. The anastomosis was patent. Abdomen was irrigated. Hemostasis was assured. Fascia was closed with an 0 PDS stitch times two, and the skin was approximated with rajeev. The skin of the port sites were approximated with rajeev as well. Appropriate dressings were applied. The patient tolerated the procedure well. There were no complications. [facility]
[2019-05-30] MEDS: NS(*) 0.9% 1000 ML BAG 1,000 ML IV PRN (23:38)
[2019-05-31] MEDS: HYDROmorphone HCL 2 MG/ML SDV IVP PRN ×3 (02:18→14:52)
[2019-05-31 04:12] VITALS: BP 109/59
[2019-05-31] MEDS: KETOROLAC 30 MG/ML VIAL IVP SCH ×4 (05:35→23:43)
[2019-05-31 06:05] LABS: PLATELET COUNT, AUTOMATED 202 K/uL (150-450)
[2019-05-31 07:20] VITALS: BP 120/61
--- NOTE | 2019-05-31 07:20 | General Surgery Progress Note ---
Subjective Progress Notes Subjective no acute events. had pain overnight but controlled now. Physical Exam Vital Signs Date Time Temp Pulse Resp B/P (MAP) Pulse Ox O2 Delivery O2 Flow Rate FiO2 05/31/19 04:12 97.8 80 16 109/59 (76) 94 Nasal Cannula 2.0 Intake and Output 05/31/19 07:03 Intake Total 4800 ml Output Total 950 ml Balance 3850 ml IV Total 2900 ml Other 1900 ml Output Urine Total 650 ml Estimated Blood Loss 300 ml # Voids 2 # Bowel Movements 1 General Appearance: No Acute Distress Cardiovascular: Other (reg rate) GI: Other (abd soft) Result Diagram: 05/31/19 0526 05/31/19525 Assessment and Plan Problems: (1) Colon cancer Assessment & Plan: colon prep, then colon resection this plan was discussed with onc. 05/31/19: doing fine. d/c madera. ambulate. clears. on lovenox. Exam Sepsis Risk: No Definite Risk DENISE PENA May 31, 2019 07:20
[2019-05-31] MEDS: GABAPENTIN 300 MG CAP PO SCH ×3 (09:00→21:15)
[2019-05-31] MEDS: ENOXAPARIN 40 MG/0.4ML SYR SC SCH (10:01)
[2019-05-31] MEDS: NS(*) 0.9% 1000 ML BAG 1,000 ML IV PRN ×2 (12:02→21:18)
[2019-05-31 14:40] VITALS: BP 140/70
[2019-05-31] MEDS: diphenhydrAMINE 50 MG/ML VIAL IVP PRN (19:54)
[2019-05-31 20:04] VITALS: BP 159/79
[2019-05-31] MEDS: ACETAMINOPHEN(*)1000 MG/100 ML 100 ML IVPB PRN (21:18)
[2019-06-01] VITALS (8 sets, daily range): BP systolic 109–155; BP diastolic 56–84
[2019-06-01] MEDS: KETOROLAC 30 MG/ML VIAL IVP SCH ×4 (05:51→23:43)
--- NOTE | 2019-06-01 07:42 | General Surgery Progress Note ---
Subjective Progress Notes Subjective no acute events. nicol clears. +flatus. Physical Exam Vital Signs Date Time Temp Pulse Resp B/P (MAP) Pulse Ox O2 Delivery O2 Flow Rate FiO2 06/01/19 07:07 96 12 131/59 (83) 93 Nasal Cannula 3.5 06/01/19 04:07 98.9 Intake and Output 06/01/19 07:03 Intake Total 1538 ml Output Total 75 ml Balance 1463 ml Intake Oral 540 ml IV Total 998 ml Output Urine Total 75 ml # Voids 3 General Appearance: No Acute Distress Cardiovascular: Other (reg rate) GI: Other (abd soft) Result Diagram: 05/31/1952505/31/19525 Assessment and Plan Problems: (1) Colon cancer Assessment & Plan: colon prep, then colon resection this plan was discussed with onc. 05/31/19: doing fine. d/c [place]. ambulate. clears. on lovenox. 06/01/19: hliv. full liquid diet. ambulate. on lovenox. Exam Sepsis Risk: No Definite Risk DENISE PENA Jun 01, 2019 07:42
[2019-06-01] MEDS: GABAPENTIN 300 MG CAP PO SCH ×2 (09:00→21:38)
[2019-06-01] MEDS: ENOXAPARIN 40 MG/0.4ML SYR SC SCH (09:24)
[2019-06-01] MEDS: ONDANSETRON 4 MG/2 ML VIAL IVP PRN (12:13)
[2019-06-01] MEDS: HYDROmorphone HCL 2 MG/ML SDV IVP PRN (12:38)
[2019-06-01] MEDS: diphenhydrAMINE 50 MG/ML VIAL IVP PRN (13:14)
[2019-06-01] MEDS ORDERED: PIPERACILLIN/TAZO*3.375GM VIAL 3.375 GM in NS(*) 0.9% 100 ML MINI-BAG 100 ML IVPB SCH (18:55)
[2019-06-01] MEDS ORDERED: NS(*) 0.9% 500 ML BAG 500 ML IV ONE (18:55)
[2019-06-01 19:24] LABS: PLATELET COUNT, AUTOMATED 195 K/uL (150-450)
[2019-06-01] MEDS: metroNIDAZOLE* 500MG/100ML BAG 100 ML IVPB SCH (19:57)
[2019-06-01] MEDS: NS(*) 0.9% 1000 ML BAG 1,000 ML IV PRN (20:05)
[2019-06-01] MEDS: LEVOFLOXACIN/D5W*500 MG/100 ML 100 ML IVPB SCH (21:38)
[2019-06-01] MEDS: ACETAMINOPHEN(*)1000 MG/100 ML 100 ML IVPB PRN (22:37)
[2019-06-02 02:42] VITALS: BP 121/65
[2019-06-02] MEDS: metroNIDAZOLE* 500MG/100ML BAG 100 ML IVPB SCH ×3 (04:20→19:42)
[2019-06-02] MEDS: KETOROLAC 30 MG/ML VIAL IVP SCH ×3 (05:42→17:21)
[2019-06-02 07:25] VITALS: BP 128/66
--- NOTE | 2019-06-02 07:50 | General Surgery Progress Note ---
Subjective Progress Notes Subjective low grade temp and tachy yesterday. responded to fluid. mult episodes of diarrhea. no vomiting. Physical Exam Vital Signs Date Time Temp Pulse Resp B/P (MAP) Pulse Ox O2 Delivery O2 Flow Rate FiO2 06/02/19 07:25 98.5 91 16 128/66 (86) 96 Nasal Cannula 3.5 Intake and Output 06/02/19 07:03 Intake Total 1300 ml Balance 1300 ml Intake Oral 500 ml IV Total 800 ml # Voids 4 # Bowel Movements 9 General Appearance: No Acute Distress Cardiovascular: Other (reg rate) Respiratory: No Respiratory Distress GI: Other (abd soft) Result Diagram: 06/01/19190506/01/191905 Assessment and Plan Problems: (1) Colon cancer Assessment & Plan: colon prep, then colon resection this plan was discussed with onc. 05/31/19: doing fine. d/c [place]. ambulate. clears. on lovenox. 06/01/19: hliv. full liquid diet. ambulate. on lovenox. 06/02/19: doing fine. no fever or tachycardia this am. c. diff neg. full liquid diet. ambulate. cont abx for now. on lovenox. Exam Sepsis Risk: Sepsis Risk DENISE PENA Jun 02, 2019 07:50
[2019-06-02] MEDS: LOPERAMIDE HCL 2 MG CAP PO PRN (08:58)
[2019-06-02] MEDS: GABAPENTIN 300 MG CAP PO SCH ×2 (08:58→20:35)
[2019-06-02] MEDS: ENOXAPARIN 40 MG/0.4ML SYR SC SCH (08:58)
--- NOTE | 2019-06-02 10:10 | Medical Nutrition Therapy ---
Nutrition Anthropometrics Height (Inches): 70.40 Height (Calculated Centimeters: 178.248803 Weight (Pounds): 156 Weight (Calculated Kilograms): 70.760 BMI: 22.1 Reginald Nutrition Score: Probably Inadequate Reginald Nutrition Risk Score: 17 Dietary Referral Nutrition Risk Factors: Unplanned Loss >10lbs Nutrition Risk Comment: Physical Findings Physical Appearance: WNR Skin Appearance Skin Appearance: Edema Edema Location Modifier: Both Edema Location: Lower Extremity Type of Edema: Degree of Edema: Gastrointestinal Symptoms GI Symtoms: Nausea, Appetite Changes, Diarrhea Tube Present: Bowel Sounds: Recent Bowel Pattern: Stool Characteristics: Nutritional Diagnosis Nutritional Risk Acuity 2: Head/Neck/GI Cancer Past Medical History: CVA, HTN, [place], Arthritis, COPD Nutritional Acuity: 2-Moderate Nutrition Diagnosis: Altered GI Function Nutrition Etiology: Physiological Causes Nutrition Problem/Etiology/Sym: Colon Cancer, colon resection Energy Requirement: 2199 (MSJ(1.5)) Protein Requirement: 85 (1.2g/kg) Fluid Requirement: 2199 (1mL/kcal) Nutrition Intervention: Encourage intake Nutrition Monitoring & Eval Nutrition Goals: Eat 50-100% Meal Nutrition Follow-Up: Fair Intake RD Patient Assessment Time: [address] Assessment Type: RD Re-Assessment Patient Nutrition Acuity: 2-Moderate Follow Up Date: Jun 04, 2019 Nutritional Comment: 05/30/19: Attempted to visit pt, currently in surgery for colon resection. PMH includes CVA, HTN, [place], Arthritis, COPD. Recommend low fiber/low residue diet post op.Will monitor weight, diet progression, need for nutrition education following colon resection.ANI 06/02: note states pt has experienced diarrhea but no vomiting. Diet has progressed to medical liquid/GI soft with pt consuming an average of 70% over last 3 meals. Pt is experiencing nonpitting edema BLE. Pt is receiving enoxaparin and IV NaCl. Na of 135 is decreased and random glucose of 147 is elevated. Monitor for continued progression of diet as tolerated. -FAUSTINA ELIZALDE Jun 02, 2019 10:10
[2019-06-02 11:05] VITALS: BP 118/73
--- NOTE | 2019-06-02 12:57 | Medical Nutrition Therapy ---
Nutrition Anthropometrics Height (Inches): 70.40 Height (Calculated Centimeters: 178.712605 Weight (Pounds): 156 Weight (Calculated Kilograms): 70.760 BMI: 22.1 Reginald Nutrition Score: Probably Inadequate Reginald Nutrition Risk Score: 17 Dietary Referral Nutrition Risk Factors: Unplanned Loss >10lbs Nutrition Risk Comment: Physical Findings Physical Appearance: WNR Skin Appearance Skin Appearance: Edema Edema Location Modifier: Both Edema Location: Lower Extremity Type of Edema: Degree of Edema: Gastrointestinal Symptoms GI Symtoms: Nausea, Appetite Changes, Diarrhea Tube Present: Bowel Sounds: Recent Bowel Pattern: Stool Characteristics: Nutritional Diagnosis Nutritional Risk Acuity 2: Head/Neck/GI Cancer Past Medical History: CVA, HTN, CT, Arthritis, COPD Nutritional Acuity: 2-Moderate Nutrition Diagnosis: Altered GI Function Nutrition Etiology: Physiological Causes Nutrition Problem/Etiology/Sym: Colon Cancer, colon resection Energy Requirement: 2199 (MSJ(1.5)) Protein Requirement: 85 (1.2g/kg) Fluid Requirement: 2199 (1mL/kcal) Nutrition Intervention: Encourage intake Nutrition Monitoring & Eval RD Patient Assessment Time: [address] Assessment Type: RD Re-Assessment Patient Nutrition Acuity: 2-Moderate Follow Up Date: Jun 04, 2019 Nutritional Comment: 05/30/19: Attempted to visit pt, currently in surgery for colon resection. PMH includes CVA, HTN, CT, Arthritis, COPD. Recommend low fiber/low residue diet post op.Will monitor weight, diet progression, need for nutrition education following colon resection.ANI 06/02: note states pt has experienced diarrhea but no vomiting. Diet has progressed to medical liquid/GI soft with pt consuming an average of 70% over last 3 meals. Pt is experiencing nonpitting edema BLE. Pt is receiving enoxaparin and IV NaCl. Na of 135 is decreased and random glucose of 147 is elevated. Monitor for continued progression of diet as tolerated. RD provided education and a hand out on low fiber diet. Pt was not feeling well, so education was fast. Pt will contact RD office with additional questions or concerns when feeling better.-FAUSTINA ELIZALDE Jun 02, 2019 12:57
[2019-06-02 14:50] VITALS: BP 106/71
--- NOTE | 2019-06-02 15:09 | Antimicrobial Stewardship ---
Antimicrobial Time Out Antimicrobial Stewardship MD Service: Other (Surgeon) Indications: Other (Post-op prophylaxis right hemicolectomy) Antimicrobial Used Flagyl and Levaquin oral Start Date: Jun 01, 2019 Culture Results: N/A MARY LOU MARKS Jun 02, 2019 15:09
[2019-06-02] MEDS: diphenhydrAMINE 50 MG/ML VIAL IVP PRN (18:06)
[2019-06-02] MEDS ORDERED: IOPAMIDOL 76% 100 ML INFUS BTL 100 ML ONE (18:11)
--- NOTE | 2019-06-02 18:35 | NUR ---
Premedicated patient with Benadryl prior to CT scan with contrast due to patients known reaction to IV contrast.
[2019-06-02 19:16] VITALS: BP 131/62
[2019-06-02] MEDS: NS(*) 0.9% 1000 ML BAG 1,000 ML IV PRN (20:34)
[2019-06-02] MEDS: ONDANSETRON 4 MG/2 ML VIAL IVP PRN (20:35)
[2019-06-02] MEDS: LEVOFLOXACIN/D5W*500 MG/100 ML 100 ML IVPB SCH (22:31)
--- NOTE | 2019-06-02 23:09 | RADIOLOGY IMAGING REPORT ---
[place]AC[place] [facility] [place] NAME: Neto Cisneros : 1945 MR: [id number] V: [id number] EXAM DATE: ORDERING PHYSICIAN: DENISE PENA TECHNOLOGIST: [place] [facility] [place]o Cisner[place] : 1945 Visit/Account:[id number] Date of Sevice: 06/02/2019 COMPUTED TOMOGRAPHY ABDOMEN AND PELVIS WITH INTRAVENOUS CONTRAST DATE OF EXAM: 06/02/2019 5:34 PM INDICATION: Vomiting, abdominal pain. COMPARISON: 05/23/2019 and others. TECHNIQUE: Contrast enhanced abdomen and pelvis CT performed during the injection of 75 ml of Isovue 370. Sagittal and coronal reconstructions were performed. One of the following dose optimization te chniques was utilized in the performance of this exam: Automated exposure control; adjustment of the mA and/or kV according to the patient's size; or use of an iterative reconstruction technique. Spec [facility] details can be referenced in the facility's radiology CT exam operational policy. FINDINGS: Lung bases: Bilateral pulmonary nodules are likely not significantly changed compared to 04/26/2019, me asuring up to 5 mm in diameter. Liver and hepatic vasculature: Multiple small hypoattenuating lesions in the liver and similar to pr ior examinations likely representing cysts and/or hemangiomas. No definite acute abnormality or susp icious lesion. Gallbladder and bile ducts: Unremarkable. Spleen: Normal. Pancreas: Small calcifications near the pancreatic head and uncinate process may be related to remot e/chronic pancreatitis. There is a degree of inflammatory change about the head and uncinate process . No well-demonstrated suspicious lesion. Adrenals: Normal. Kidneys, ureters and bladder: No acute abnormality or suspicious lesion. 2.4 cm cyst at the inferio r pole of the right kidney. Small focus of gas in the urinary bladder likely related to recent instr umentation. Retroperitoneum and aorta: Dilation of the infrarenal aorta measuring up to 3.3 cm in diameter. Ass ociated moderate atherosclerosis/mural thrombus. No retroperitoneal adenopathy. GI tract, mesentery and peritoneum: There are multiple loops of dilated small bowel with increased w all enhancement measuring up to 3.6 cm in diameter. The distal small bowel is closer normal in calib er. Right hemicolectomy with ileocolic anastomosis in the midabdomen. There is a small to moderate volume of free fluid in the abdomen and pelvis, as well as small volume pneumoperitoneum. Focally th ick-walled loop of decompressed jejunum in the left midabdomen can be seen on image 78 series 2 and c oronal image 37. Prostate and seminal vesicles: Normal. Bones and soft tissues: Ventral surgical wound with cutaneous rajeev in place. Small focus of gas in the right lower quadrant abdominal wall may represent an injection site. No suspicious lesion. IMPRESSION: 1. Interval right colectomy with ileocolic anastomosis. Dilation of multiple loops of small bowel i s favored to represent postoperative ileus, and there is a small volume pneumoperitoneum and small to moderate volume of free fluid in the abdomen and pelvis that is also likely postoperative. Early or partial obstruction not excluded, follow-up as clinically indicated. 2. Inflammation about the head and uncinate process of the pancreas is nonspecific and may be reacti ve considering other intra-abdominal abnormalities. Correlate with any clinical suspicion and labora tory evidence of pancreatitis. 3. Focally thick-walled loop of jejunum in the left midabdomen, possibly due to decompression. Cons ider short-term follow-up to exclude underlying neoplasm. 4. Pulmonary nodules measuring up to 5 mm in diameter, likely not significantly changed compared to 04/26/2019. [employer] SOC[employer]ET[employer] FOLLOW-UP GUIDELINES FOR NEWLY DETECTED INCIDENTAL NODULES IN PERSONS 35 YEARS OF AGE OR OLDER. *These recommendations do NOT apply to lung cancer screening, patients with immunosuppression or linda ents with a known primary malignan y. MULTIPLE SOLID NODULES If nodule size is < 6 mm: * Low risk patient ? No routine follow-up. * High risk patient ? Optional CT at 12 months.LOW RISK PATIENT: Minimal or absent history of tobacc o use and of other known risk factors. HIGH RISK PATIENT: Tobacco use, family history of lung cancer, upper pulmonary lobe location of nodul e, presence of emphysema, pulmonary fibrosis, older age. Liliam H, Casimiro DP, Bailey JM, et al. Guidelines for Management of Incidental Pulmonary Nodules Dete cted on CT Images: From the Fleischner Society 2017. Radiology. [facility] Dr. Ptael discussed this case with DR. PENA on 06/02/2019 10:59 PM. Report Dictated By: Leobardo Patel MD at 06/02/2019 10:33 PM Report E-Signed By: Leobardo Patel MD at 06/02/2019 11:02 PM WSN:[id number]
--- NOTE | 2019-06-02 23:23 | RADIOLOGY IMAGING REPORT ---
[place]AC[place] [facility] [place] NAME: Neto Cisneros : 1945 MR: [id number] V: [id number] EXAM DATE: ORDERING PHYSICIAN: DENISE PENA TECHNOLOGIST: Location: [facility] Patient: Neto Cisneros : 1945 Visit/Account:[id number] Date of Sevice: 06/02/2019 CHEST SINGLE AP COMPARISONS: None. ADDITIONAL PERTINENT HISTORY: Increased oxygen requirements FINDINGS: Cardiomediastinal silhouette: Negative. Pulmonary vasculature: Negative. Lung martinez: Minimal bibasilar regions of atelectatic change. Pleural spaces: Negative. Osseous structures: Negative. Surrounding soft tissues: Negative. IMPRESSION: 1. Minimal bibasilar regions of atelectatic change. 2. No other acute cardiopulmonary disease. Report Dictated By: Erik Maria MD at 06/02/2019 11:15 PM Report E-Signed By: Erik Maria MD at 06/02/2019 11:15 PM WSN:[id number]
[2019-06-02 23:35] VITALS: BP 125/68
[2019-06-03] MEDS: metroNIDAZOLE* 500MG/100ML BAG 100 ML IVPB SCH ×3 (03:31→19:45)
[2019-06-03 03:47] VITALS: BP 134/68
[2019-06-03] MEDS: ACETAMINOPHEN(*)1000 MG/100 ML 100 ML IVPB PRN ×2 (04:57→17:57)
[2019-06-03 06:06] LABS: PLATELET COUNT, AUTOMATED 168 K/uL (150-450)
[2019-06-03 07:22] VITALS: BP 111/62
--- NOTE | 2019-06-03 08:41 | General Surgery Progress Note ---
Subjective Progress Notes Subjective vomiting yesterday. Physical Exam Vital Signs Date Time Temp Pulse Resp B/P (MAP) Pulse Ox O2 Delivery O2 Flow Rate FiO2 06/03/19 07:22 98.3 106 24 111/62 (78) 88 Nasal Cannula 2.0 Intake and Output 06/03/19 07:03 Intake Total 1635 ml Output Total 1100 ml Balance 535 ml Intake Oral 120 ml IV Total 1515 ml Emesis 1100 ml # Voids 4 # Bowel Movements 13 # Emeses 1 General Appearance: No Acute Distress, Other (sleeping) Cardiovascular: Other (mildly tachy) GI: Other (abd soft, mild distention) Result Diagram: 06/03/19 0540 06/03/19 0540 Assessment and Plan Problems: (1) Colon cancer Assessment & Plan: colon prep, then colon resection this plan was discussed with onc. 05/31/19: doing fine. d/c [place]. ambulate. clears. on lovenox. 06/01/19: hliv. full liquid diet. ambulate. on lovenox. 06/02/19: doing fine. no fever or tachycardia this am. c. diff neg. full liquid diet. ambulate. cont abx for now. on lovenox. 06/03/19: ct did not show obstruction or perf. cont npo and ice chips. ambulate. await resolution of ileus. Exam Sepsis Risk: Sepsis Risk DENISE PENA Jun 03, 2019 08:41
[2019-06-03] MEDS: GABAPENTIN 300 MG CAP PO SCH ×2 (09:00→20:52)
[2019-06-03] MEDS: ENOXAPARIN 40 MG/0.4ML SYR SC SCH (09:10)
[2019-06-03] MEDS: NS(*) 0.9% 1000 ML BAG 1,000 ML IV PRN ×2 (09:12→19:44)
[2019-06-03 10:55] VITALS: BP 135/72
[2019-06-03 14:39] VITALS: BP 143/76
--- NOTE | 2019-06-03 15:28 | Medical Nutrition Therapy ---
Nutrition Anthropometrics Height (Inches): 70.40 Height (Calculated Centimeters: 178.473549 Weight (Pounds): 156 Weight (Calculated Kilograms): 70.760 BMI: 22.1 Reginald Nutrition Score: Probably Inadequate Reginald Nutrition Risk Score: 17 Dietary Referral Nutrition Risk Factors: Unplanned Loss >10lbs Nutrition Risk Comment: Physical Findings Physical Appearance: WNR Skin Appearance Skin Appearance: Edema Edema Location Modifier: Both Edema Location: Lower Extremity Type of Edema: Degree of Edema: Gastrointestinal Symptoms GI Symtoms: Nausea, Diarrhea, Change in Bowel Pattern Tube Present: Bowel Sounds: Recent Bowel Pattern: Stool Characteristics: Nutritional Diagnosis Nutritional Risk Acuity 1: Ileus Nutritional Risk Acuity 2: Head/Neck/GI Cancer Past Medical History: CVA, HTN, [place], Arthritis, COPD Nutritional Acuity: 1-High Nutrition Diagnosis: Altered GI Function Nutrition Etiology: Physiological Causes Nutrition Problem/Etiology/Sym: Colon Cancer, colon resection Energy Requirement: 2199 (MSJ(1.5)) Protein Requirement: 85 (1.2g/kg) Fluid Requirement: 2199 (1mL/kcal) Diet Type: NPO (Nothing by Mouth) Nutrition Intervention: Incr diet as tolerated Diet Comment To RSA: OFFER NUTR SUPPLEMENT WITH DIET ADVANCES Nutrition Monitoring & Eval RD Patient Assessment Time: [address] Assessment Type: RD Re-Assessment Patient Nutrition Acuity: 1-High Follow Up Date: Jun 06, 2019 Nutritional Comment: 05/30/19: Attempted to visit pt, currently in surgery for colon resection. PMH includes CVA, HTN, [place], Arthritis, COPD. Recommend low fiber/low residue diet post op.Will monitor weight, diet progression, need for nutrition education following colon resection.ANI 06/02: note states pt has experienced diarrhea but no vomiting. Diet has progressed to medical liquid/GI soft with pt consuming an average of 70% over last 3 meals. Pt is experiencing nonpitting edema BLE. Pt is receiving enoxaparin and IV NaCl. Na of 135 is decreased and random glucose of 147 is elevated. Monitor for continued progression of diet as tolerated. RD provided education and a hand out on low fiber diet. Pt was not feeling well, so education was fast. Pt will contact RD office with additional questions or concerns when feeling better.-AKG 06/03 Diet changed to NPO with Dr reporting ileus without perforation or obstuction. Pt reporting N/V. Pt NPO/clear liquid 2 days then med liquid 2 days. Pt may benefit from nutritional support if diet not advanced. Will offer nutr supplment when diet advances. CLOVER SNEED Jun 03, 2019 15:28
[2019-06-03 19:07] VITALS: BP 142/65
[2019-06-03] MEDS: LEVOFLOXACIN/D5W*500 MG/100 ML 100 ML IVPB SCH (20:52)
[2019-06-03] MEDS: HYDROmorphone HCL 2 MG/ML SDV IVP PRN (22:13)
[2019-06-03 22:21] VITALS: BP 140/68
[2019-06-04] MEDS: PROMETHAZINE 25 MG/ML 1 ML AMP IVP PRN ×2 (02:08→09:50)
[2019-06-04 02:15] VITALS: BP 154/71
[2019-06-04] MEDS: metroNIDAZOLE* 500MG/100ML BAG 100 ML IVPB SCH ×3 (03:37→20:11)
[2019-06-04] MEDS: ONDANSETRON 4 MG/2 ML VIAL IVP PRN (05:52)
[2019-06-04] MEDS: diphenhydrAMINE 50 MG/ML VIAL IVP PRN (06:10)
[2019-06-04] MEDS: NS(*) 0.9% 1000 ML BAG 1,000 ML IV PRN ×2 (06:17→18:21)
[2019-06-04 07:23] VITALS: BP 148/68
[2019-06-04] MEDS: ENOXAPARIN 40 MG/0.4ML SYR SC SCH (08:47)
[2019-06-04] MEDS: GABAPENTIN 300 MG CAP PO SCH ×2 (08:47→21:26)
--- NOTE | 2019-06-04 09:59 | General Surgery Progress Note ---
Subjective Progress Notes Subjective recent vomiting Physical Exam Vital Signs Date Time Temp Pulse Resp B/P (MAP) Pulse Ox O2 Delivery O2 Flow Rate FiO2 06/04/19 08:51 93 Nasal Cannula 3.0 06/04/19 07:23 100.3 109 18 148/68 (94) Intake and Output 06/04/19 07:03 Intake Total 3660 ml Output Total 200 ml Balance 3460 ml Intake Oral 200 ml IV Total 3460 ml Oral Regurgitation 200 ml # Voids 13 # Bowel Movements 11 # Emeses 2 General Appearance: No Acute Distress, Other (sleepy) Cardiovascular: Other (mildly tachy) GI: Other (abd soft, mild distention) Result Diagram: 06/03/1940 06/03/1940 Assessment and Plan Problems: (1) Colon cancer Assessment & Plan: colon prep, then colon resection this plan was discussed with onc. 05/31/19: doing fine. d/c madera. ambulate. clears. on lovenox. 06/01/19: hliv. full liquid diet. ambulate. on lovenox. 06/02/19: doing fine. no fever or tachycardia this am. c. diff neg. full liquid diet. ambulate. cont abx for now. on lovenox. 06/03/19: ct did not show obstruction or perf. cont npo and ice chips. ambulate. await resolution of ileus. 06/04/19: awaiting resolution of ileus. ambulate. picc line. tpn. Exam Sepsis Risk: Sepsis Risk DENISE PENA Jun 04, 2019 09:59
[2019-06-04 11:15] VITALS: BP 154/87
[2019-06-04 14:24] VITALS: BP 164/84
[2019-06-04] MEDS: HYDROmorphone HCL 2 MG/ML SDV IVP PRN ×2 (14:29→20:11)
[2019-06-04 19:50] VITALS: BP 161/77
[2019-06-04] MEDS: LEVOFLOXACIN/D5W*500 MG/100 ML 100 ML IVPB SCH (21:28)
[2019-06-04 23:39] VITALS: BP 139/69
[2019-06-05] VITALS (10 sets, daily range): BP systolic 127–170; BP diastolic 61–94
[2019-06-05] MEDS: HYDROmorphone HCL 2 MG/ML SDV IVP PRN ×4 (02:13→21:24)
[2019-06-05] MEDS: ACETAMINOPHEN(*)1000 MG/100 ML 100 ML IVPB PRN (02:29)
[2019-06-05] MEDS: metroNIDAZOLE* 500MG/100ML BAG 100 ML IVPB SCH ×3 (04:12→23:22)
[2019-06-05] MEDS: NS(*) 0.9% 1000 ML BAG 1,000 ML IV PRN (05:15)
[2019-06-05 05:58] LABS: PLATELET COUNT, AUTOMATED 195 K/uL (150-450)
[2019-06-05] MEDS ORDERED: NS(*) 0.9% 1000 ML BAG 1,000 ML IV PRN (07:16)
--- NOTE | 2019-06-05 07:41 | General Surgery Progress Note ---
Subjective Progress Notes Subjective says he does not feel well. ambulating to bathroom. some pain in abd. hungry for peaches. Physical Exam Vital Signs Date Time Temp Pulse Resp B/P (MAP) Pulse Ox O2 Delivery O2 Flow Rate FiO2 06/05/19 06:57 98.8 83 16 144/76 (98) 96 Nasal Cannula 2.5 Intake and Output 06/05/19 07:03 Intake Total 2588 ml Output Total 300 ml Balance 2288 ml Intake Oral 100 ml IV Total 2488 ml Oral Regurgitation 300 ml # Voids 7 # Bowel Movements 7 # Emeses 1 General Appearance: No Acute Distress Cardiovascular: Other (reg rate) GI: Other (soft, inc c/d/i) Result Diagram: 06/05/1914 06/05/19513 Assessment and Plan Problems: (1) Colon cancer Assessment & Plan: colon prep, then colon resection this plan was discussed with onc. 05/31/19: doing fine. d/c [place]. ambulate. clears. on lovenox. 06/01/19: hliv. full liquid diet. ambulate. on lovenox. 06/02/19: doing fine. no fever or tachycardia this am. c. diff neg. full liquid diet. ambulate. cont abx for now. on lovenox. 06/03/19: ct did not show obstruction or perf. cont npo and ice chips. ambulate. await resolution of ileus. 06/04/19: awaiting resolution of ileus. ambulate. picc line. tpn. 06/05/19: picc and tpn. oob. diet as nicol. 2 units prbc. hospitalist consult. Exam Sepsis Risk: Sepsis Risk DENISE PENA Jun 05, 2019 07:41
[2019-06-05] MEDS ORDERED: NS(*) 0.9% 500 ML BAG 500 ML ONE (08:07)
[2019-06-05] MEDS: ENOXAPARIN 40 MG/0.4ML SYR SC SCH (08:49)
[2019-06-05] MEDS: GABAPENTIN 300 MG CAP PO SCH ×2 (08:49→21:24)
[2019-06-05] MEDS: PROMETHAZINE 25 MG/ML 1 ML AMP IVP PRN (08:51)
--- NOTE | 2019-06-05 16:36 | RADIOLOGY IMAGING REPORT ---
FACILITY: [facility] PATIENT NAME: Neto Cisneros : 1945 MR: [id number] V: [id number] EXAM DATE: ORDERING PHYSICIAN: JENNIFER CALIX TECHNOLOGIST: Location: [facility] Patient: Neto Cisneros : 1945 Visit/Account:[id number] Date of Sevice: 06/05/2019 Exam type: PICC LINE INSERTION, US GUIDANCE VASCULAR ACCESS History: PICC placement Comparison: None. Findings: Informed consent was obtained. Patient's left arm was prepped and draped in usual sterile fashion. Local anesthesia was accomplished with 1% lidocaine. Under direct and continuous sonographic guidanc e the patent left basilic vein was accessed with a micropuncture needle. Under fluoroscopic and sono graphic guidance the guidewire was advanced through the needle with the distal tip resting at the cav al atrial junction. The needle was removed and a peel-away sheath was advanced over the guidewire. Guidewire was removed and a 43 cm long trimmed 5 Argentine double lumen power PICC was then inserted thr ough the peel-away sheath with the distal tip resting at the caval atrial junction utilizing fluorosc opic guidance. Both lumens of power PICC were flushed with 5 mL of saline flush. The peel-away bocanegra th was removed. The proximal portion of the PICC line was adhered the patient's arm the sterile dres sing. The procedure was accomplished without apparent complication. The sonographic images were jo ed to PACS the dose area product was 53.99 micro-Ugarte per meter squared. Incidentally noted is a small right pleural effusion and airspace consolidation in the right lung bas e appears slightly improved when compared to the prior chest from June 02, 2019 IMPRESSION: 1. Successful placement of a 43 cm long trimmed 5 Argentine double lumen power PICC inserted via the pa tent left basilic vein with the distal tip resting in the superior vena cava at the caval atrial junc tion. Report Dictated By: Vanessa Krishnamurthy MD at 06/05/2019 4:22 PM Report E-Signed By: Vanessa Krishnamurthy MD at 06/05/2019 4:27 PM WSN:ISAC
--- NOTE | 2019-06-05 16:36 | RADIOLOGY IMAGING REPORT ---
FACILITY: [facility] PATIENT NAME: Neto Cisneros : 1945 MR: [id number] V: [id number] EXAM DATE: ORDERING PHYSICIAN: JENNIFER CALIX TECHNOLOGIST: Location: [facility] Patient: Neto Cisneros : 1945 Visit/Account:[id number] Date of Sevice: 06/05/2019 Exam type: PICC LINE INSERTION, US GUIDANCE VASCULAR ACCESS History: PICC placement Comparison: None. Findings: Informed consent was obtained. Patient's left arm was prepped and draped in usual sterile fashion. Local anesthesia was accomplished with 1% lidocaine. Under direct and continuous sonographic guidanc e the patent left basilic vein was accessed with a micropuncture needle. Under fluoroscopic and sono graphic guidance the guidewire was advanced through the needle with the distal tip resting at the cav al atrial junction. The needle was removed and a peel-away sheath was advanced over the guidewire. Guidewire was removed and a 43 cm long trimmed 5 Polish double lumen power PICC was then inserted thr ough the peel-away sheath with the distal tip resting at the caval atrial junction utilizing fluorosc opic guidance. Both lumens of power PICC were flushed with 5 mL of saline flush. The peel-away bocanegra th was removed. The proximal portion of the PICC line was adhered the patient's arm the sterile dres sing. The procedure was accomplished without apparent complication. The sonographic images were jo ed to PACS the dose area product was 53.99 micro-Ugarte per meter squared. Incidentally noted is a small right pleural effusion and airspace consolidation in the right lung bas e appears slightly improved when compared to the prior chest from June 02, 2019 IMPRESSION: 1. Successful placement of a 43 cm long trimmed 5 Polish double lumen power PICC inserted via the pa tent left basilic vein with the distal tip resting in the superior vena cava at the caval atrial junc tion. Report Dictated By: Vanessa Krishnamurthy MD at 06/05/2019 4:22 PM Report E-Signed By: Vanessa Krishnamurthy MD at 06/05/2019 4:27 PM WSN:ISAC
--- NOTE | 2019-06-05 16:45 | Medical Nutrition Therapy ---
Nutrition Anthropometrics Height (Inches): 70.40 Height (Calculated Centimeters: 178.307101 Weight (Pounds): 156 Weight (Calculated Kilograms): 70.760 BMI: 22.1 Reginald Nutrition Score: Probably Inadequate Reginald Nutrition Risk Score: 17 Dietary Referral Nutrition Risk Factors: Unplanned Loss >10lbs Nutrition Risk Comment: Physical Findings Physical Appearance: WNR Skin Appearance Skin Appearance: Edema Edema Location Modifier: Both Edema Location: Lower Extremity Type of Edema: Degree of Edema: Gastrointestinal Symptoms GI Symtoms: Nausea, Vomiting, Change in Bowel Pattern Tube Present: Bowel Sounds: Recent Bowel Pattern: Stool Characteristics: Nutritional Diagnosis Nutritional Risk Acuity 1: Ileus Nutritional Risk Acuity 2: Head/Neck/GI Cancer Past Medical History: CVA, HTN, [place], Arthritis, COPD Nutritional Acuity: 1-High Nutrition Diagnosis: Altered GI Function Nutrition Etiology: Physiological Causes Nutrition Problem/Etiology/Sym: Colon Cancer, colon resection Energy Requirement: 2199 (MSJ(1.5)) Protein Requirement: 85 (1.2g/kg) Fluid Requirement: 2199 (1mL/kcal) Diet Type: NPO (Nothing by Mouth) Nutrition Intervention: Nutrition support, Incr diet as tolerated Diet Comment To RSA: OFFER NUTR SUPPLEMENT WITH DIET ADVANCES Nutritional Support Recommended Enteral / Parental: TPN Recommended Rate: initiate TPN at 42ml/hr for 24 hr then 70ml/hr + 20% lipids Recommended Duration: 24 Recommended Calories: 1886 (1478 from TPN with additional 408 kcal from dextrose/levofloxin) Recommended Protein: 84 Recommended Lipids Calories: 500 Total Recommended Calories: 2386 Nutrition Monitoring & Eval RD Patient Assessment Time: [address] Assessment Type: Nutrition Support Consult Patient Nutrition Acuity: 1-High Follow Up Date: Jun 07, 2019 Nutritional Comment: 05/30/19: Attempted to visit pt, currently in surgery for colon resection. PMH includes CVA, HTN, [place], Arthritis, COPD. Recommend low fiber/low residue diet post op.Will monitor weight, diet progression, need for nutrition education following colon resection.ANI 06/02: note states pt has experienced diarrhea but no vomiting. Diet has progressed to medical liquid/GI soft with pt consuming an average of 70% over last 3 meals. Pt is experiencing nonpitting edema BLE. Pt is receiving enoxaparin and IV NaCl. Na of 135 is decreased and random glucose of 147 is elevated. Monitor for continued progression of diet as tolerated. RD provided education and a hand out on low fiber diet. Pt was not feeling well, so education was fast. Pt will contact RD office with additional questions or concerns when feeling better.-AKG 06/03 Diet changed to NPO with reporting ileus without perforation or obstuction. Pt reporting N/V. Pt NPO/clear liquid 2 days then med liquid 2 days. Pt may benefit from nutritional support if diet not advanced. Will offer nutr supplment when diet advances. MARGARITA 06/05 Consult for TPN. Pt is recieving 408 kcal from dextrose/levofloxin med. Recommend final rate of 70 ml/hr TPN + lipids to provide 2386 kcal (1478 from TPN, 408 from dextrose) and 84gm protein. This would meet 108% est kcal and 99% est protein needs. CLOVER SNEED Jun 05, 2019 16:45
--- NOTE | 2019-06-05 18:19 | Hospitalist Consultation ---
History of Present Illness Requesting Physician Dr Dee Reason for Consult medical evaluation nausea and vomiting Chief Complaint continued nausea and vomiting post op History of Present Illness 74M post colon resection on 05.30.2019 for colon cancer. PMHx significant for CVA, [place]. Underwent R colectomy with reanastomosis with Dr Dee on 05.30. Tolerated procedure well but has had continued diarrhea and nausea and vomiting since that time. Emesis and nausea controlled with antiemetics. No fever, chills, incision site without drainage or erythema. Denies any prior problems with nausea and vomiting prior to surgery. History Problems: (1) Colon cancer Home Meds Active Scripts Ciprofloxacin Hcl 500 Mg Tab (CIPRO 500 MG TAB) 500 Mg Tablet, 500 MG PO BID, #12 TAB Prov:DENISE DEE 05/24/19 Metronidazole (FLAGYL) 500 Mg Tablet, 500 MG PO Q8H, #18 TAB Prov:DENISE DEE 05/24/19 Hydrocodone Bit/Acetaminophen (HYDROCODON-ACETAMINOPHEN 5-325) 1 Each Tablet, 1 EACH PO Q4-6H PRN for PAIN, #15 TAKE ONE TABLET BY MOUTH EVERY 4-6 HOURS NEEDED FOR PAIN Prov:BENJI KEENAN DO 05/20/19 Discontinued Scripts Hydrocodone Bit/Acetaminophen (NORCO 5-325 TABLET) 1 Each Tablet, 1 EACH PO Q4H PRN for PAIN, #20 TAB Prov:JEANDENISE P 05/24/19 Metronidazole (FLAGYL) 500 Mg Tablet, 500 MG PO BID for infection, #14 TAB Prov:BENJI KEENAN DO 05/20/19 Ciprofloxacin Hcl 500 Mg Tab (CIPRO 500 MG TAB) 500 Mg Tablet, 500 MG PO BID for infecction, #14 Prov:BENJI KEENAN DO 05/20/19 Ondansetron 4 Mg Odt (ONDANSETRON 4 MG ODT) 4 Mg Tab.rapdis, 4 MG PO Q6H PRN for NAUSEA/VOMITING, #15 TAB Prov:BENJI KEENAN DO 05/20/19 Allergies: Coded Allergies: Penicillins (Verified Allergy, Severe, AIRWAY OBSTRUCTION, 06/01/19) aspirin (Verified Adverse Reaction, Intermediate, stomach irritation, 05/23/19) Uncoded Allergies: IV contrast (Allergy, Mild, itchy, 05/20/19) Patient History: FH: Parkinson's disease MOTHER Hx Smoking: Yes Smoking Status: Former Smoker When Quit Tobacco?: 1 month ago Hx Alcohol Use: No Hx Substance Use Disorder: Yes Social Drug Use: Former Review of Systems All Systems Reviewed/Normal: Yes, Except as Noted Constitutional: No Fever, No Chills Cardiovascular: No Chest Pain Respiratory: No Shortness of Breath, No Cough Gastrointestinal: Nausea, Vomiting, Diarrhea Exam Vital Signs Vital Signs Date Time Temp Pulse Resp B/P (MAP) Pulse Ox O2 Delivery O2 Flow Rate FiO2 06/05/19 17:37 99.1 84 16 138/73 06/05/19 10:48 96 Nasal Cannula 2.5 General Appearance: Alert, Awake, No Acute Distress, Afebrile Neuro: No Gross deficits Cardiovascular: Normal Rhythm & Peripheral Pulses GI: Abd Soft and Non-Tender (stapled well approximated midline incision, port incisions WNL, hyperactive bowel sounds) Extremities: Soft and Non Tender, Warm, Pulses, Perfused; No Edema Medical Decision Making Data Points Result Diagram: 06/05/1914 06/05/19513 Assessment and Plan Problems: (1) Nausea & vomiting Assessment & Plan: There was some evidence of ileus post operative imaging. No history diabetes, previous nausea and vomiting problems, fever, hematochezia. No typical medications were found other than Dilaudid which may contribute to nausea and vomiting. Recommend continue current management with IV antiemetics, TPN, and trials PO feeding and advance as tolerated. The emesis and diarrhea do appear to be improving based on I/O review. Compazine suppository or scopolamine patch could be considered outpatient if n/v persist and patient unable to hold down PO medications. (2) Diarrhea Status: Acute Assessment & Plan: Cdiff negative, unlikely to be infectious. Likely represents response to GI surgery. (3) Colon cancer Assessment & Plan: Per surgery. Pathology shows pT4bN0, he is scheduled to follow up with heme/onc. Venous Thromboembolism Antithrombotics Is Pt On Any Antithrombotics?: No Exam Sepsis Risk: Sepsis Risk OPAL ANNE DO Jun 05, 2019 18:19
[2019-06-05] MEDS: ONDANSETRON 4 MG/2 ML VIAL IVP PRN (20:05)
[2019-06-05] MEDS: LEVOFLOXACIN/D5W*500 MG/100 ML 100 ML IVPB SCH (21:24)
[2019-06-06 02:21] VITALS: BP 138/91
[2019-06-06] MEDS: ONDANSETRON 4 MG/2 ML VIAL IVP PRN ×2 (02:43→10:02)
[2019-06-06] MEDS: PROMETHAZINE 25 MG/ML 1 ML AMP IVP PRN (05:09)
[2019-06-06] MEDS: metroNIDAZOLE* 500MG/100ML BAG 100 ML IVPB SCH (06:20)
[2019-06-06] MEDS: ENOXAPARIN 40 MG/0.4ML SYR SC SCH (09:32)
[2019-06-06] MEDS: GABAPENTIN 300 MG CAP PO SCH ×2 (09:32→20:39)
[2019-06-06 09:50] VITALS: BP 153/87
[2019-06-06 11:06] VITALS: BP 165/86
[2019-06-06 11:10] LABS: PLATELET COUNT, AUTOMATED 173 K/uL (150-450)
[2019-06-06] MEDS ORDERED: PANTOPRAZOLE SOD 40 MG IV VIAL IVP SCH (13:05)
--- NOTE | 2019-06-06 13:13 | Hospitalist Progress Note ---
Subjective Progress Notes Subjective Still having nausea, vomiting, and diarrhea. Physical Exam Vital Signs Date Time Temp Pulse Resp B/P (MAP) Pulse Ox O2 Delivery O2 Flow Rate FiO2 06/06/19 11:06 98.9 101 18 165/86 (112) 94 Nasal Cannula 3.0 Intake and Output 06/06/19 07:03 Intake Total 620 ml Output Total 25 ml Balance 595 ml Intake Oral 120 ml Blood Product 500 ml Oral Regurgitation 25 ml # Voids 7 # Bowel Movements 12 # Emeses 1 General Appearance: Alert, Awake (pale. Mildly uncomfortable appearing) Neuro: No Gross deficits Cardiovascular: Regular Rate and Rhythm Respiratory: Clear to Auscultation GI: Other (soft, right sided discomfort with palpation) Result Diagram: 06/06/19 1047 06/06/19 1047 Assessment and Plan Problems: (1) Nausea & vomiting Assessment & Plan: The symptoms started post operatively. He has been on Metronidazole and Levofloxacin since surgery. There was some evidence of ileus post operative imaging. No history diabetes, previous nausea and vomiting problems, fever, hematochezia. Likely, the Metronidazole is the culprit. Dr. Dee is agreement to stop all the antibiotics. Will start pantoprazole for gastritis. Reevaluate symptoms this afternoon. Agree with TPN and lipids. (2) Diarrhea Status: Acute Assessment & Plan: It is likely related to the antibiotics and recent partial colectomy. C Dif negative on 06/01. Antibiotics to be stopped. Will check C Dif with stool culture and leukocytes. If C Dif negative then will try some Imodium and possibly Bacid. (3) Colon cancer Assessment & Plan: Per surgery. Pathology shows pT4bN0, he is scheduled to follow up with heme/onc. Exam Sepsis Risk: Sepsis Risk DARNELL CASE MD Jun 06, 2019 13:13
--- NOTE | 2019-06-06 14:11 | General Surgery Progress Note ---
Subjective Progress Notes Subjective pain controlled but feels nauseous. Physical Exam Vital Signs Date Time Temp Pulse Resp B/P (MAP) Pulse Ox O2 Delivery O2 Flow Rate FiO2 06/06/19 11:06 98.9 101 18 165/86 (112) 94 Nasal Cannula 3.0 Intake and Output 06/06/19 07:03 Intake Total 620 ml Output Total 25 ml Balance 595 ml Intake Oral 120 ml Blood Product 500 ml Oral Regurgitation 25 ml # Voids 7 # Bowel Movements 12 # Emeses 1 General Appearance: Alert, Awake Cardiovascular: Other (reg rate) GI: Other (abd soft) Result Diagram: 06/06/19 1047 06/06/19 1047 Assessment and Plan Problems: (1) Colon cancer Assessment & Plan: colon prep, then colon resection this plan was discussed with onc. 05/31/19: doing fine. d/c madera. ambulate. clears. on lovenox. 06/01/19: hliv. full liquid diet. ambulate. on lovenox. 06/02/19: doing fine. no fever or tachycardia this am. c. diff neg. full liquid diet. ambulate. cont abx for now. on lovenox. 06/03/19: ct did not show obstruction or perf. cont npo and ice chips. ambulate. await resolution of ileus. 06/04/19: awaiting resolution of ileus. ambulate. picc line. tpn. 06/05/19: picc and tpn. oob. diet as nicol. 2 units prbc. hospitalist consult. 06/06/19: feels better after prbc. start tpn. d/c abx. ambulate. Exam Sepsis Risk: Sepsis Risk DENISE PENA Jun 06, 2019 14:11
[2019-06-06 14:35] VITALS: BP 158/77
[2019-06-06] MEDS ORDERED: INSULIN HUM REG 100 UN/ML 3 ML 10 UNIT, MULTIVITAMINS(*) 10 ML VIAL 10 ML, TRACE METALS... IV ONE (16:00)
[2019-06-06] MEDS: FAT EMULSION 20% 250 ML BAG 250 ML IVPB SCH (16:25)
[2019-06-06] MEDS ORDERED: ALTEPLASE RECOMB 2 MG VIAL INTRACATH ONE (16:45)
[2019-06-06] MEDS ORDERED: NS(*) 0.9% 1000 ML BAG 1,000 ML IV PRN (16:46)
[2019-06-06] MEDS: LACTOBACILLUS ACIDOPHILUS TAB PO SCH (18:23)
[2019-06-06] MEDS: LOPERAMIDE HCL 2 MG CAP PO PRN (18:23)
[2019-06-06 19:21] VITALS: BP 159/82
[2019-06-07] VITALS (7 sets, daily range): BP systolic 135–219; BP diastolic 64–90
[2019-06-07 07:15] LABS: PLATELET COUNT, AUTOMATED 184 K/uL (150-450)
[2019-06-07] MEDS: LACTOBACILLUS ACIDOPHILUS TAB PO SCH ×2 (09:24→17:20)
[2019-06-07] MEDS: PANTOPRAZOLE SOD 40 MG IV VIAL IVP SCH ×2 (09:24→21:33)
[2019-06-07] MEDS: ENOXAPARIN 40 MG/0.4ML SYR SC SCH (09:24)
[2019-06-07] MEDS: GABAPENTIN 300 MG CAP PO SCH ×2 (09:24→21:33)
--- NOTE | 2019-06-07 10:20 | General Surgery Progress Note ---
Subjective Progress Notes Subjective feels much better. nicol some po. pain controlled. Physical Exam Vital Signs Date Time Temp Pulse Resp B/P (MAP) Pulse Ox O2 Delivery O2 Flow Rate FiO2 06/07/19 07:07 99.1 82 16 157/81 (106) 93 Nasal Cannula 3.0 Intake and Output 06/07/19 07:04 Intake Total 0 ml Balance 0 ml Intake Oral 0 ml # Voids 4 # Bowel Movements 7 # Emeses 1 General Appearance: No Acute Distress Cardiovascular: Other (reg rate) GI: Other (abd soft, inc c/d/i) Result Diagram: 06/07/1949 06/07/1949 Assessment and Plan Problems: (1) Colon cancer Assessment & Plan: colon prep, then colon resection this plan was discussed with onc. 05/31/19: doing fine. d/c mad[place]. ambulate. clears. on lovenox. 06/01/19: hliv. full liquid diet. ambulate. on lovenox. 06/02/19: doing fine. no fever or tachycardia this am. c. diff neg. full liquid diet. ambulate. cont abx for now. on lovenox. 06/03/19: ct did not show obstruction or perf. cont npo and ice chips. ambulate. await resolution of ileus. 06/04/19: awaiting resolution of ileus. ambulate. picc line. tpn. 06/05/19: picc and tpn. oob. diet as nicol. 2 units prbc. hospitalist consult. 06/06/19: feels better after prbc. start tpn. d/c abx. ambulate. 06/07/19: feels much better today. monitor hb. ambulate. diet as nicol. tpn. Exam Sepsis Risk: No Definite Risk DENISE PENA Jun 07, 2019 10:20
--- NOTE | 2019-06-07 11:21 | Hospitalist Progress Note ---
Subjective Progress Notes Subjective He reports feeling much improved. No nausea/emesis. He has tolerated some softer foods. Physical Exam Vital Signs Date Time Temp Pulse Resp B/P (MAP) Pulse Ox O2 Delivery O2 Flow Rate FiO2 06/07/19 10:32 94 Nasal Cannula 2.5 06/07/19 07:07 99.1 82 16 157/81 (106) Intake and Output 06/07/19 07:04 Intake Total 0 ml Balance 0 ml Intake Oral 0 ml # Voids 4 # Bowel Movements 7 # Emeses 1 General Appearance: Alert, Awake Cardiovascular: Regular Rate and Rhythm Respiratory: Clear to Auscultation Extremities: Warm, Perfused Result Diagram: 06/07/1949 06/07/1949 Assessment and Plan Problems: (1) Nausea & vomiting Assessment & Plan: Improved. The symptoms started post operatively. He had been on Metronidazole and Levofloxacin since surgery. There was some evidence of ileus post operative imaging. No history diabetes, previous nausea and vomiting problems, fever, hematochezia. Likely, the Metronidazole was the culprit. Dr. Dee was in agreement to stop all the antibiotics. He has also been started on pantoprazole for gastritis. He continues on TPN and lipids. Will sign off for now. Please call if any other/recurrent problems. (2) Diarrhea Status: Acute Assessment & Plan: It is likely related to the antibiotics and recent partial colectomy. Clostridium Difficile negative on 06/01. Antibiotics have been stopped. He has been started on acidophilus. (3) Colon cancer Assessment & Plan: Per surgery. He is scheduled to follow up with oncology. Exam Sepsis Risk: No Definite Risk JASON KIDD MD Jun 07, 2019 11:21
--- NOTE | 2019-06-07 15:52 | Medical Nutrition Therapy ---
Nutrition Anthropometrics Height (Inches): 70.40 Height (Calculated Centimeters: [phone] Weight (Pounds): 156 Weight (Calculated Kilograms): 70.760 BMI: 22.1 Reginald Nutrition Score: Probably Inadequate Reginald Nutrition Risk Score: 17 Dietary Referral Nutrition Risk Factors: Unplanned Loss >10lbs Nutrition Risk Comment: Physical Findings Physical Appearance: BMI: 22.1 Skin Appearance Skin Appearance: Edema Edema Location Modifier: Edema Location: Type of Edema: Degree of Edema: Gastrointestinal Symptoms GI Symtoms: Tube Present: Bowel Sounds: Recent Bowel Pattern: Stool Characteristics: Nutritional Diagnosis Nutritional Risk Acuity 1: Ileus Nutritional Risk Acuity 2: Head/Neck/GI Cancer Past Medical History: CVA, HTN, [place], Arthritis, COPD Nutritional Acuity: 1-High Nutrition Diagnosis: Altered GI Function Nutrition Etiology: Physiological Causes Nutrition Problem/Etiology/Sym: Colon Cancer, colon resection Energy Requirement: 2199 (MSJ(1.5)) Protein Requirement: 85 (1.2g/kg) Fluid Requirement: 2199 (1mL/kcal) Diet Type: Medical Liquid/GI soft Nutrition Intervention: Encourage intake, Incr diet as tolerated Diet Comment To [facility]: OFFER NUTR SUPPLEMENT WITH DIET ADVANCES Nutrition Monitoring & Eval Nutrition Goals: Eat 75-100% Meal RD Patient Assessment Time: [address] Assessment Type: RD Re-Assessment Patient Nutrition Acuity: 1-High Follow Up Date: Jun 07, 2019 Nutritional Comment: 05/30/19: Attempted to visit pt, currently in surgery for colon resection. PMH includes CVA, HTN, [place], Arthritis, COPD. Recommend low fiber/low residue diet post op.Will monitor weight, diet progression, need for nutrition education following colon resection.ANI 06/02: note states pt has experienced diarrhea but no vomiting. Diet has progressed to medical liquid/GI soft with pt consuming an average of 70% over last 3 meals. Pt is experiencing nonpitting edema BLE. Pt is receiving enoxaparin and IV NaCl. Na of 135 is decreased and random glucose of 147 is elevated. Monitor for continued progression of diet as tolerated. RD provided education and a hand out on low fiber diet. Pt was not feeling well, so education was fast. Pt will contact RD office with additional questions or concerns when feeling better.-AKG 06/03 Diet changed to NPO with Dr reporting ileus without perforation or obstuction. Pt reporting N/V. Pt NPO/clear liquid 2 days then med liquid 2 days. Pt may benefit from nutritional support if diet not advanced. Will offer nutr supplment when diet advances. MARGARITA 06/05 Consult for TPN. Pt is recieving 408 kcal from dextrose/levofloxin med. Recommend final rate of 70 ml/hr TPN + lipids to provide 2386 kcal (1478 from TPN, 408 from dextrose) and 84gm protein. This would meet 108% est kcal and 99% est protein needs. MARGARITA 06/07/2019: PT is no longer on TPN, and has progressed to a medical liquid/GI soft diet. Pt is able to tolerate some softer foods. No longer presents with any feelings of nausea. Pt laboratory values indicate a low hgb at 9.8, low hct at 29.2, low potassium at 3.2, and low creatinine at .6. Will continue to monitor pt intake, progression to solid foods, and weight. CHELSEY RUEDA Jun 07, 2019 13:39
[2019-06-07] MEDS ORDERED: INS HUM REG* 100 U/ML(ER ONLY) 20 UNIT, MULTIVITAMINS(*) 10 ML VIAL 10 ML, TRACE METALS... IV SCH (16:00)
[2019-06-07] MEDS: FAT EMULSION 20% 250 ML BAG 250 ML IVPB SCH (16:17)
[2019-06-07] MEDS: INSULIN HUM LISPRO 100 UN/ML 3 ML VIAL SUBQ PRN (22:16)
[2019-06-08 03:10] VITALS: BP 148/68
[2019-06-08] MEDS: INSULIN HUM LISPRO 100 UN/ML 3 ML VIAL SUBQ PRN ×3 (03:14→17:52)
[2019-06-08 07:43] VITALS: BP 144/72
[2019-06-08] MEDS: LACTOBACILLUS ACIDOPHILUS TAB PO SCH ×2 (08:45→17:46)
[2019-06-08] MEDS: ENOXAPARIN 40 MG/0.4ML SYR SC SCH (08:45)
[2019-06-08] MEDS: GABAPENTIN 300 MG CAP PO SCH ×2 (08:46→21:26)
[2019-06-08] MEDS: PANTOPRAZOLE SOD 40 MG IV VIAL IVP SCH ×2 (08:46→21:26)
--- NOTE | 2019-06-08 09:32 | General Surgery Progress Note ---
Subjective Progress Notes Subjective improving. feeling better. no vomiting. Physical Exam Vital Signs Date Time Temp Pulse Resp B/P (MAP) Pulse Ox O2 Delivery O2 Flow Rate FiO2 06/08/19 03:10 99.1 90 18 148/68 (94) 94 Nasal Cannula 3.0 Intake and Output 06/08/19 07:04 Intake Total 776 ml Balance 776 ml Intake Oral 776 ml # Voids 3 # Bowel Movements 1 General Appearance: No Acute Distress Cardiovascular: Other (reg rate) GI: Other (abd soft) Result Diagram: 06/07/19 0649 06/07/19 0649 Assessment and Plan Problems: (1) Colon cancer Assessment & Plan: colon prep, then colon resection this plan was discussed with onc. 05/31/19: doing fine. d/c [place]. ambulate. clears. on lovenox. 06/01/19: hliv. full liquid diet. ambulate. on lovenox. 06/02/19: doing fine. no fever or tachycardia this am. c. diff neg. full liquid diet. ambulate. cont abx for now. on lovenox. 06/03/19: ct did not show obstruction or perf. cont npo and ice chips. ambulate. await resolution of ileus. 06/04/19: awaiting resolution of ileus. ambulate. picc line. tpn. 06/05/19: picc and tpn. oob. diet as nicol. 2 units prbc. hospitalist consult. 06/06/19: feels better after prbc. start tpn. d/c abx. ambulate. 06/07/19: feels much better today. monitor hb. ambulate. diet as nicol. tpn. 06/08/19: feeling better. stop tpn after this bag. ambulate. reg diet. onc consult outpt. Exam Sepsis Risk: No Definite Risk DENISE PENA Jun 08, 2019 09:32
[2019-06-08] MEDS: NYSTATIN 5 ML UDCUP PO SCH ×4 (09:35→21:26)
[2019-06-08 09:50] LABS: PLATELET COUNT, AUTOMATED 188 K/uL (150-450)
[2019-06-08 11:05] VITALS: BP 164/60
[2019-06-08 16:24] VITALS: BP 148/90
[2019-06-08 20:00] VITALS: BP 141/76
[2019-06-08 23:27] VITALS: BP 144/62
[2019-06-09 05:31] VITALS: BP 152/78
[2019-06-09 07:14] VITALS: BP 156/84
--- NOTE | 2019-06-09 07:35 | Hospitalist Depart ---
Discharge Summary Reason for Hosp/Final Diag: (1) Colon cancer Hospital Course & Plan: colon prep, then colon resection this plan was discussed with onc. 05/31/19: doing fine. d/c [place]. ambulate. clears. on lovenox. 06/01/19: hliv. full liquid diet. ambulate. on lovenox. 06/02/19: doing fine. no fever or tachycardia this am. c. diff neg. full liquid diet. ambulate. cont abx for now. on lovenox. 06/03/19: ct did not show obstruction or perf. cont npo and ice chips. ambulate. await resolution of ileus. 06/04/19: awaiting resolution of ileus. ambulate. picc line. tpn. 06/05/19: picc and tpn. oob. diet as nicol. 2 units prbc. hospitalist consult. 06/06/19: feels better after prbc. start tpn. d/c abx. ambulate. 06/07/19: feels much better today. monitor hb. ambulate. diet as nicol. tpn. 06/08/19: feeling better. stop tpn after this bag. ambulate. reg diet. onc consult outpt. 06/09/19: doing well. d/c home. f/u 1 wk. Departure Weight (Pounds): 156 Result Diagram: 06/08/19 0937 06/07/19 0649 Condition: Improved Discharge: Home Discharge Instructions Home Meds Active Scripts Ciprofloxacin Hcl 500 Mg Tab (CIPRO 500 MG TAB) 500 Mg Tablet, 500 MG PO BID, #12 TAB Prov:DENISE FERNANDEZ 05/24/19 Metronidazole (FLAGYL) 500 Mg Tablet, 500 MG PO Q8H, #18 TAB Prov:DENISE FERNANDEZ 05/24/19 Hydrocodone Bit/Acetaminophen (HYDROCODON-ACETAMINOPHEN 5-325) 1 Each Tablet, 1 EACH PO Q4-6H PRN for PAIN, #15 TAKE ONE TABLET BY MOUTH EVERY 4-6 HOURS NEEDED FOR PAIN Prov:BENJI KEENAN DO 05/20/19 Diet: Regular Activity: No Heavy Lifting Special Instructions: no lifting more than 15 lbs for 5 wks. ok to shower. f/u dr. tashia fernandez 1 wk ([phone]). Venous Thromboembolism Antithrombotics Is Pt On Any Antithrombotics?: No DENISE FERNANDEZ Jun 09, 2019 07:35
[2019-06-09] MEDS: PANTOPRAZOLE SOD 40 MG IV VIAL IVP SCH (08:33)
[2019-06-09] MEDS: NYSTATIN 5 ML UDCUP PO SCH (08:33)
[2019-06-09] MEDS: LACTOBACILLUS ACIDOPHILUS TAB PO SCH (08:33)
[2019-06-09] MEDS: GABAPENTIN 300 MG CAP PO SCH (08:34)
[2019-06-09] MEDS: ENOXAPARIN 40 MG/0.4ML SYR SC SCH (08:34)
--- NOTE | 2019-06-09 15:41 | Medical Nutrition Therapy ---
Nutrition Anthropometrics Height (Inches): 70.40 Height (Calculated Centimeters: 178.573169 Weight (Pounds): 156 Weight (Calculated Kilograms): 70.760 BMI: 22.1 Reginald Nutrition Score: Probably Inadequate Reginald Nutrition Risk Score: 16 Dietary Referral Nutrition Risk Factors: Unplanned Loss >10lbs Nutrition Risk Comment: Physical Findings Physical Appearance: BMI: 22.1 Skin Appearance Skin Appearance: Edema Edema Location Modifier: Both Edema Location: Lower Extremity Type of Edema: Degree of Edema: Gastrointestinal Symptoms GI Symtoms: Appetite Changes Tube Present: Bowel Sounds: Recent Bowel Pattern: Stool Characteristics: Nutritional Diagnosis Nutritional Risk Acuity 1: Ileus Nutritional Risk Acuity 2: Head/Neck/GI Cancer Past Medical History: CVA, HTN, [place], Arthritis, COPD Nutritional Acuity: 1-High Nutrition Diagnosis: Altered GI Function Nutrition Etiology: Physiological Causes Nutrition Problem/Etiology/Sym: Colon Cancer, colon resection Energy Requirement: 2199 (MSJ(1.5)) Protein Requirement: 85 (1.2g/kg) Fluid Requirement: 2199 (1mL/kcal) Diet Type: Medical Liquid/GI soft Nutrition Intervention: Encourage intake, Incr diet as tolerated Diet Comment To [facility]: OFFER NUTR SUPPLEMENT WITH DIET ADVANCES Nutrition Monitoring & Eval Nutrition Monitoring: Intake, weight, diet progression RD Patient Assessment Time: [address] Assessment Type: RD Re-Assessment Patient Nutrition Acuity: 1-High Follow Up Date: Jun 12, 2019 Nutritional Comment: 05/30/19: Attempted to visit pt, currently in surgery for colon resection. PMH includes CVA, HTN, [place], Arthritis, COPD. Recommend low fiber/low residue diet post op.Will monitor weight, diet progression, need for nutrition education following colon resection.NAI 06/02: note states pt has experienced diarrhea but no vomiting. Diet has progressed to medical liquid/GI soft with pt consuming an average of 70% over last 3 meals. Pt is experiencing nonpitting edema BLE. Pt is receiving enoxaparin and IV NaCl. Na of 135 is decreased and random glucose of 147 is elevated. Monitor for continued progression of diet as tolerated. RD provided education and a hand out on low fiber diet. Pt was not feeling well, so education was fast. Pt will contact RD office with additional questions or concerns when feeling better.-AKG 06/03 Diet changed to NPO with Dr reporting ileus without perforation or obstuction. Pt reporting N/V. Pt NPO/clear liquid 2 days then med liquid 2 days. Pt may benefit from nutritional support if diet not advanced. Will offer nutr supplment when diet advances. MARGARITA 06/05 Consult for TPN. Pt is recieving 408 kcal from dextrose/levofloxin med. Recommend final rate of 70 ml/hr TPN + lipids to provide 2386 kcal (1478 from TPN, 408 from dextrose) and 84gm protein. This would meet 108% est kcal and 99% est protein needs. MARGARITA 06/07/2019: PT is no longer on TPN, and has progressed to a medical liquid/GI soft diet. Pt is able to tolerate some softer foods. No longer presents with any feelings of nausea. Pt laboratory values indicate a low hgb at 9.8, low hct at 29.2, low potassium at 3.2, and low creatinine at .6. Will continue to monitor pt intake, progression to solid foods, and weight. -ANTOINETTE 06/09/2019: Pt recovering well. Pt continues to be on mechnical soft diet and TPN was stopped on 06/08 according to MD note. Pt ate 100% of meal for dinner yesterday. Pt will be discharged today. - CHELSEY VELOZ Jun 09, 2019 13:47
== END 2019-06-09 09:50 | disposition home or self-care (01) | DRG 331 ==
LOC: EDSTATUS 12:20 → MED 12:33
PROVIDERS: ADMIT Surgery; ATTEND Surgery
PROC: 0DBU0ZZ Excision of Omentum, Open Approach (ICD-10-PCS; 2019-05-30)
PROC: 0WJJ4ZZ Inspection of Pelvic Cavity, Percutaneous Endoscopic Approach (ICD-10-PCS; 2019-05-30)
PROC: 0DTF0ZZ Resection of Right Large Intestine, Open Approach (ICD-10-PCS; principal; 2019-05-30 13:16)
PROC: 02HV33Z Insertion of Infusion Device into Superior Vena Cava, Percutaneous Approach (ICD-10-PCS; 2019-06-05)
PROC: B548ZZA Ultrasonography of Superior Vena Cava, Guidance (ICD-10-PCS; 2019-06-05)
PROC: 3E0436Z Introduction of Nutritional Substance into Central Vein, Percutaneous Approach (ICD-10-PCS; 2019-06-05)
PROC: 30243N1 Transfusion of Nonautologous Red Blood Cells into Central Vein, Percutaneous Approach (ICD-10-PCS; 2019-06-05)
DX: C18.2 Malignant neoplasm of ascending colon (principal); T37.8X5A Adverse effect of other specified systemic anti-infectives and antiparasitics, initial encounter; I25.10 Atherosclerotic heart disease of native coronary artery without angina pectoris; I10 Essential (primary) hypertension; Z87.891 Personal history of nicotine dependence; J44.9 Chronic obstructive pulmonary disease, unspecified; Y92.239 Unspecified place in hospital as the place of occurrence of the external cause; Z88.0 Allergy status to penicillin; Z88.8 Allergy status to other drugs, medicaments and biological substances; I25.2 Old myocardial infarction; Z86.73 Personal history of transient ischemic attack (TIA), and cerebral infarction without residual deficits; R19.7 Diarrhea, unspecified
CPT/HCPCS: 36415; 36416; 36573; 71045; 74177; 81001; 82310; 82374; 82435; 82565; 82947; 82948; 83605; 83630; 83735; 83880; 84100; 84132; 84295; 84520; 85025; 86850; 86900; 86901; 86920; 87045; 87324; 87449; 87493; 88309; 93005; C1751; C9113; J0131; J1100; J1170; J1200; J1650; J1815; J1885; J1956; J2001; J2405; J2550; J2704; J3010; J3490; J7030; J7040; P9016; Q9967

== ENCOUNTER → 2019-06-15 | Outpatient (CLI) | payer MEDICARE, OTHER ==
[~2019-06-15] MED LIST changes: +IPRA3AMP10 IH; +LEVO750T44 PO; +NEBU1EAC25 INH
--- NOTE | 2019-06-15 17:01 | RADIOLOGY IMAGING REPORT ---
FACILITY: [facility] - [place] PATIENT NAME: Neto Cisneros : 1945 MR: [id number] V: [id number] EXAM DATE: ORDERING PHYSICIAN: DENISE PENA TECHNOLOGIST: Location: [facility] - [place] Patient: Neto Cisneros : 1945 Visit/Account:[id number] Date of Sevice: 06/15/2019 CHEST PA LAT HISTORY: Shortness of breath. COMPARISON: Chest x-ray June 02, 2019. CT chest April 26, 2019. FINDINGS: Cardiomediastinal contours: The heart size is normal. Lungs and pleura: There is parenchymal density in the right middle lobe just below the minor fissure. The findings are suggestive of pneumonia. Or may be mild hyperinflation of the lungs. Bones/soft tissues: There are no findings of a fracture. IMPRESSION: Right middle lobe pneumonia without findings of an associated pleural effusion. Report Dictated By: Escobar Gilbert MD at 06/15/2019 4:51 PM Report E-Signed By: Escobar Gilbert MD at 06/15/2019 4:53 PM WSN:[id number]
== END ==
LOC: RAD 13:59
PROVIDERS: ATTEND Surgery
DX: J18.1 Lobar pneumonia, unspecified organism (principal)
CPT/HCPCS: 71046